=== PATIENT | female | born 1940 | race Caucasian/White ===

== ENCOUNTER 2021-11-29 14:01 | Outpatient (RCR) | payer MEDICARE, SELFPAY ==
[2021-09-09 15:40] LABS: INR 2.5; Partial Thromboplastin Time 35.6 SECONDS (22.3-36.8); Prothrombin Time 26.5 Seconds (11.1-14.7)
[2021-09-20 17:17] LABS: INR 1.8; Prothrombin Time 20.3 Seconds (11.1-14.7)
[2021-09-27 17:27] LABS: INR 2.3
[2021-10-04 16:08] LABS: INR 1.8; Prothrombin Time 20.7 Seconds (11.1-14.7)
[2021-10-12 17:37] LABS: INR 2.2; Prothrombin Time 23.8 Seconds (11.1-14.7)
[2021-10-19 17:38] LABS: INR 1.8; Prothrombin Time 20.4 Seconds (11.1-14.7)
[2021-11-02 16:46] LABS: INR 1.8; Prothrombin Time 20.3 Seconds (11.1-14.7)
[2021-11-09 15:30] LABS: INR 2.2; Prothrombin Time 24.2 Seconds (11.1-14.7)
[2021-11-16 17:10] LABS: INR 1.9; Prothrombin Time 21.2 Seconds (11.1-14.7)
[2021-11-29 14:51] LABS: INR 1.7; Prothrombin Time 19.6 Seconds (11.1-14.7)
== END 2021-12-08 23:59 | disposition home or self-care (01) ==
LOC: ANHLAB 14:01
DX: I48.91 Unspecified atrial fibrillation (principal)
CPT/HCPCS: 36415; 85610; 85730

== ENCOUNTER 2022-01-18 16:35 | Outpatient (CLI) | payer MEDICARE, SELFPAY ==
[2022-01-18 17:12] LABS: INR 2.2; Prothrombin Time 23.6 Seconds (11.1-14.7)
== END 2022-01-18 16:36 | disposition home or self-care (01) ==
PROVIDERS: PCP Family Medicine; Referring Provider Specialist; Visit Provider Family Medicine
DX: I48.91 Unspecified atrial fibrillation (principal); Z79.01 Long term (current) use of anticoagulants
CPT/HCPCS: 36415; 85610

== ENCOUNTER 2022-03-09 11:39 | Outpatient (RCR) | payer MEDICARE, SELFPAY ==
[2021-12-13 11:16] LABS: Basophils Percent Auto 0.2 % (0.2-1.2); Eosinophils Absolute Auto 0.2 K/mm3 (0-0.3); Eosinophils Percent Auto 3.2 % (0-4.4); Hematocrit 38.1 % (37.0-47.0); Immature Granulocyte Absolute 0.03 K/mm3 (0.00-0.031); Immature Granulocyte Percent A 0.5 % (0-0.5); Lymphocytes Absolute Auto 1.43 K/mm3 (0.9-3.2); Lymphocytes Percent Auto 24.3 % (18.3-44.2); Mean Corpuscular HGB Conc 31.5 g/dl (32-36); Mean Corpuscular Hemoglobin 30.1 pg (26-34); Mean Corpuscular Volume 95.5 fl (80-100); Mean Platelet Volume 9.3 fl (7.4-10.4); Monocytes Absolute Auto 0.6 K/mm3 (0.1-0.6); Monocytes Percent Auto 9.7 % (2.6-8.5); Neutrophils Absolute Auto 3.7 K/mm3 (1.3-6.7); Neutrophils Percent Auto 62.1 % (45.5-73.1); Platelet Count Result 203 k/mm3 (150-375); Red Blood Count 3.99 M/mm3 (4.2-5.4); Red Cell Distribution Width 17.2 % (11.5-14.5); White Blood Count 5.9 K/mm3 (4.5-10.0)
[2021-12-13 11:25] LABS: INR 1.6; Prothrombin Time 18.5 Seconds (11.1-14.7)
[2021-12-13 11:31] LABS: Alanine Aminotransferase 23 U/L (4-35); Albumin Level 4.1 g/dL (3.5-5.1); Alkaline Phosphatase 87 U/L (38-126); Anion Gap 6 mmol/L (8-16); Aspartate Amino Transferase 33 U/L (14-36); Bilirubin,Total 0.4 mg/dL (0.2-1.3); Blood Urea Nitrogen 17 mg/dL (7-17); Calcium 8.5 mg/dL (8.4-10.2); Carbon Dioxide 26 mmol/L (22-30); Chloride 107 mmol/L (98-107); Cholesterol 209 mg/dL (0-200); Estimated Glomerular Filt Rate 39; Glucose 86 mg/dL (65-110); HDL Direct 88 mg/dL; Potassium 4.5 mmol/L (3.4-5.0); Sodium 139 mmol/L (137-145); Triglycerides 43 mg/dL (<150)
[2021-12-13 11:42] LABS: LDL Cholesterol Direct 73 mg/dL
[2021-12-15 11:37] LABS: Phenytoin Dilantin Free 1.2 mg/L (1.0-2.0)
[2021-12-28 15:02] LABS: INR 1.5; Prothrombin Time 17.6 Seconds (11.1-14.7)
[2022-01-05 15:28] LABS: INR 2.4; Prothrombin Time 25.5 Seconds (11.1-14.7)
[2022-02-10 12:38] LABS: INR 2.2; Prothrombin Time 23.5 Seconds (11.1-14.7)
[2022-03-09 12:42] LABS: Prothrombin Time 21.9 Seconds (11.1-14.7)
== END 2022-03-13 23:59 | disposition home or self-care (01) ==
LOC: ANHLAB 11:39
PROVIDERS: PCP Family Medicine; Referring Provider Family Medicine
DX: I48.91 Unspecified atrial fibrillation (principal); E78.2 Mixed hyperlipidemia
CPT/HCPCS: 36415; 80053; 80061; 80186; 85025; 85610

== ENCOUNTER 2022-05-09 15:58 | Outpatient (CLI) | payer MEDICARE, SELFPAY ==
--- NOTE | ~2022-05-09 | XR_ITS ---
XR chest 2V DATE: 05/09/2022 16:27 INDICATION: Shortness of breath. History of COPD and hypertension. TECHNIQUE: PA and lateral views COMPARISON: None FINDINGS: Bilateral hyperinflation and relative flattening the diaphragm and increased retrosternal a irspace, consistent with COPD. No pulmonary infiltrate or consolidation, pleural effusion or pulmonar y vascular congestion or pneumothorax. Heart size is within normal range. Left-sided transvenous pacemaker device with leads overlying right atrium and right ventricle. No hilar or mediastinal enlargement. No pleural effusion or pulmonary vascular congestion or pneumoth orax. Aortic arch calcification and mild aortic unfolding. Diffuse osteopenia. Degenerative changes of the thoracic and lumbar spine. Glenohumeral osteoarthriti s. IMPRESSION: COPD Left-sided dual-lead pacemaker No active cardiopulmonary disease Reviewed, dictated and finalized at location B.
== END 2022-05-09 15:59 | disposition home or self-care (01) ==
PROVIDERS: PCP Family Medicine; Visit Provider Family Medicine
DX: R09.02 Hypoxemia (principal); Z95.0 Presence of cardiac pacemaker
CPT/HCPCS: 71046

== ENCOUNTER 2022-05-15 16:19 | Outpatient (CLI) | payer MEDICARE, SELFPAY ==
[2022-05-17 17:02] LABS: Phenytoin Dilantin Free 1.1 mg/L (1.0-2.0)
== END 2022-05-15 16:20 | disposition home or self-care (01) ==
LOC: ANHLAB 16:22
PROVIDERS: PCP Family Medicine; Visit Provider Physician Assistant
DX: Z51.81 Encounter for therapeutic drug level monitoring (principal); Z79.899 Other long term (current) drug therapy
CPT/HCPCS: 36415; 80186

== ENCOUNTER 2022-05-23 23:10 | Emergency (ER) | payer MEDICARE, SELFPAY ==
[2022-05-23 23:14] VITALS: BP 165/75; PULSE 60; RESP 16; TEMP 36.6; O2SAT 99
--- NOTE | 2022-05-23 23:58 | ED.DIZZY ---
HPI - Dizziness General Chief Complaint: Dizziness Stated Complaint: MY EQUILLIBRIUM IS OFF Time Seen by Provider: 05/23/22 23:44 History of Present Illness HPI Narrative: Patient is a 82-year-old female with a history of complete heart block status post pacemaker placement, here for evaluation of lightheadedness today. Patient states that she feels this way frequently when she does not eat, and patient states that she has not had a lot to eat today or drink. She decided to come to the ED because she felt off balance when she was ambulating, but denies syncope. Patient states she feels improved now. She denies any chest pain, shortness of breath, headaches, visual changes, syncope, unilateral weakness, slurred speech. She has seen her PCP for this issue in the past and has not had a clear etiology. Related Data Home Medications Medication Instructions Recorded Confirmed magnesium oxide 500 mg capsule 500 mg PO DAILY 12/06/21 05/10/22 mecobalamin (vitamin B12) 1,000 1,000 mcg PO DAILY 12/06/21 05/10/22 mcg chewable tablet (B12 Active) vitamin B complex (B 1 tablet PO DAILY 12/06/21 05/10/22 Complex-Vitamin B12 tablet) Allergies Allergy/AdvReac Type Severity Reaction Status Date / Time propoxyphene [From Darvon] AdvReac Migraine Verified 05/23/22 23:14 Review of Systems Review of Systems: Gen: Denies fevers or chills Eyes: Denies eye pain or visual change ENT: Denies congestion Respiratory: Denies shortness of breath or cough CV: Denies chest pain or palpitations GI: Denies abdominal pain nausea, emesis or diarrhea : denies burning, urgency, frequency or hematuria Musculoskeletal: Denies back pain or muscle pain Neuro: Reports lightheadedness. Denies numbness, tingling, weakness or focal weakness Skin: Denies rash Except as documented, all other systems reviewed and negative [facility] Past Medical History Medical History Atrial fibrillation by electrocardiogram Benign essential HTN CHB (complete heart block) COPD (chronic obstructive pulmonary disease) Heart block AV third degree Neuropathy Right-sided Reynoso's palsy Seizures Tinnitus of right ear Surgical History Surgical History S/P left knee arthroscopy Status cardiac pacemaker Family History Family History Father Asthma Hypertension Mother History of stroke Social History Social History Social History: Smoking status: Never smoker Second hand tobacco smoke exposure: No Alcohol intake: former Substance use: never Substance use type: does not use Gender identity (if verbalized by the patient): Female Sexual Orientation (if Verbalized by the Patient): Straight or Heterosexual Exam Narrative: APPEARANCE: Well appearing, no pain in distress, well-nourished. Head: Normocephalic and atraumatic. EYES: PERRLA/EOMI, conjunctivae clear NOSE: No nasal drainage EARS: External ear normal in appearance THROAT: Oropharynx is clear. Mucous membranes are moist. NECK: Supple. No adenopathy, no masses. RESPIRATORY: Airway patent, respirations nonlabored. Clear to auscultation bilaterally, no rales, rhonchi, wheezing. CARDIOVASCULAR: Regular rate and rhythm without murmurs, rubs, or gallops. ABDOMINAL: Normoactive bowel sounds. Soft, nontender, nondistended. No rebound tenderness or guarding. MUSCULOSKELETAL: Extremities are warm and well-perfused. Moves all extremities well. No edema. NEURO: [id number] normal. [id number] normal. Cranial nerves II through XII intact. Normal speech. SKIN: Skin is warm and dry. No rashes. PSYCHIATRIC: Normal affect/mood. Course Vital Signs Vital signs: Vital Signs Temperature 97.9 F 05/23/22 23:14 Pulse Rate 60 05/23/22 23:14 Respiratory Rate 16 05/23/22 23
--- NOTE | 2022-05-24 | ECG_ITS ---
Measurements Intervals [place] Rate: 60 P: 261 MO: 311 QRS: 236 QRSD: 147 T: 53 QT: 436 QTc: 436 Interpretive Statements ELECTRONIC ATRIAL PACEMAKER INDETERMINATE AXIS NONSPECIFIC INTRAVENTRICULAR CONDUCTION DELAY ABNORMAL ECG NO PREVIOUS ECG AVAILABLE FOR COMPARISON Electronically Signed On 05-24-2022 12:31:06 CDT by Nabil Richard M.D.
[2022-05-24 00:13] LABS: Basophils Percent Auto 0.5 % (0.2-1.2); Eosinophils Absolute Auto 0.3 K/mm3 (0-0.3); Eosinophils Percent Auto 3.9 % (0-4.4); Hematocrit 39.1 % (37.0-47.0); Hemoglobin 12.4 g/dL (12.0-15.0); Immature Granulocyte Absolute 0.03 K/mm3 (0.00-0.031); Immature Granulocyte Percent A 0.5 % (0-0.5); Lymphocytes Absolute Auto 1.13 K/mm3 (0.9-3.2); Lymphocytes Percent Auto 17.7 % (18.3-44.2); Mean Corpuscular HGB Conc 31.7 g/dl (32-36); Mean Corpuscular Hemoglobin 31.7 pg (26-34); Mean Platelet Volume 9.3 fl (7.4-10.4); Monocytes Absolute Auto 0.7 K/mm3 (0.1-0.6); Monocytes Percent Auto 10.7 % (2.6-8.5); Neutrophils Absolute Auto 4.3 K/mm3 (1.3-6.7); Neutrophils Percent Auto 66.7 % (45.5-73.1); Platelet Count Result 201 k/mm3 (150-375); Red Blood Count 3.91 M/mm3 (4.2-5.4); Red Cell Distribution Width 14.7 % (11.5-14.5); White Blood Count 6.4 K/mm3 (4.5-10.0)
[2022-05-24 00:32] LABS: Alanine Aminotransferase 21 U/L (6-35); Albumin Level 3.9 g/dL (3.5-5.1); Alkaline Phosphatase 93 U/L (38-126); Anion Gap 9 mmol/L (8-16); Aspartate Amino Transferase 28 U/L (14-36); Bilirubin,Total 0.3 mg/dL (0.2-1.3); Blood Urea Nitrogen 26 mg/dL (7-17); Calcium 8.5 mg/dL (8.4-10.2); Carbon Dioxide 23 mmol/L (22-30); Chloride 104 mmol/L (98-107); Estimated CRCL calculation 24 ml/min; Estimated Glomerular Filt Rate 39; Glucose 101 mg/dL (65-110); Magnesium 2.1 mg/dL (1.6-2.3); Phosphorus 5.2 mg/dL (2.5-4.5); Sodium 136 mmol/L (137-145)
[2022-05-24 02:23] VITALS: BP 165/83; PULSE 60; RESP 18; O2SAT 100
== END 2022-05-24 02:24 | disposition home or self-care (01) ==
PROVIDERS: Physician Assistant; Emergency Provider Emergency Medicine; PCP Family Medicine
DX: R42 Dizziness and giddiness (principal); I48.91 Unspecified atrial fibrillation; I10 Essential (primary) hypertension; J44.9 Chronic obstructive pulmonary disease, unspecified; G62.9 Polyneuropathy, unspecified; Z95.0 Presence of cardiac pacemaker; I45.9 Conduction disorder, unspecified
CPT/HCPCS: 36415; 80053; 83735; 84100; 85025; 93005; 99283

== ENCOUNTER 2022-06-15 16:55 | Outpatient (RCR) | payer MEDICARE, SELFPAY ==
[2022-04-06 14:25] LABS: INR 1.8; Prothrombin Time 20.3 Seconds (11.1-14.7)
[2022-04-20 17:09] LABS: INR 2.3; Prothrombin Time 24.1 Seconds (11.1-14.7)
[2022-05-09 17:27] LABS: INR 1.4; Prothrombin Time 16.6 Seconds (11.1-14.7)
[2022-05-15 16:50] LABS: INR 2.8; Prothrombin Time 28.2 Seconds (11.1-14.7)
[2022-06-15 17:23] LABS: INR 1.5; Prothrombin Time 17.2 Seconds (11.1-14.7)
== END 2022-07-05 23:59 | disposition home or self-care (01) ==
LOC: ANHLAB 16:55
PROVIDERS: PCP Family Medicine
DX: I48.91 Unspecified atrial fibrillation (principal)
CPT/HCPCS: 36415; 71046; 80186; 85610

== ENCOUNTER 2022-07-05 14:39 | Outpatient (RCR) | payer MEDICARE, SELFPAY ==
[2022-07-05 15:31] LABS: INR 1.7; Prothrombin Time 19.5 Seconds (11.1-14.7)
== END 2022-07-05 14:40 | disposition home or self-care (01) ==
LOC: ANHLAB 14:39
PROVIDERS: PCP Family Medicine; Visit Provider Physician Assistant
DX: Z51.81 Encounter for therapeutic drug level monitoring (principal); I48.91 Unspecified atrial fibrillation; Z79.01 Long term (current) use of anticoagulants
CPT/HCPCS: 36415; 85610

== ENCOUNTER 2022-07-28 12:28 | Outpatient (CLI) | payer MEDICARE, SELFPAY ==
[2022-07-28 13:05] LABS: Prothrombin Time 22.3 Seconds (11.1-14.7)
== END 2022-07-28 12:29 | disposition home or self-care (01) ==
LOC: ANHLAB 12:31
PROVIDERS: PCP Family Medicine; Visit Provider Physician Assistant
DX: Z79.01 Long term (current) use of anticoagulants (principal)
CPT/HCPCS: 36415; 85610

== ENCOUNTER 2022-07-28 12:35 | Outpatient (CLI) | payer MEDICARE, SELFPAY ==
[2022-07-28 13:08] LABS: Alanine Aminotransferase 29 U/L (6-35); Albumin Level 4.2 g/dL (3.5-5.1); Alkaline Phosphatase 73 U/L (38-126); Anion Gap 10 mmol/L (8-16); Aspartate Amino Transferase 32 U/L (14-36); Bilirubin,Total 0.3 mg/dL (0.2-1.3); Blood Urea Nitrogen 26 mg/dL (7-17); Calcium 8.6 mg/dL (8.4-10.2); Carbon Dioxide 25 mmol/L (22-30); Chloride 104 mmol/L (98-107); Estimated Glomerular Filt Rate 48; Glucose 92 mg/dL (65-110); Magnesium 2.1 mg/dL (1.6-2.3); Phosphorus 3.7 mg/dL (2.5-4.5); Potassium 4.1 mmol/L (3.4-5.0); Sodium 139 mmol/L (137-145)
== END 2022-07-28 12:36 | disposition home or self-care (01) ==
LOC: ANHLAB 12:36
PROVIDERS: PCP Family Medicine; Visit Provider Family Medicine
DX: I13.10 Hypertensive heart and chronic kidney disease without heart failure, with stage 1 through stage 4 chronic kidney disease, or unspecified chronic kidney disease (principal); N18.30 Chronic kidney disease, stage 3 unspecified
CPT/HCPCS: 36415; 80053; 83735; 84100; 85610

== ENCOUNTER 2022-10-27 15:14 | Outpatient (RCR) | payer MEDICARE, SELFPAY ==
[2022-08-14 15:39] LABS: INR 1.3; Prothrombin Time 15.4 Seconds (11.1-14.7)
[2022-10-06 15:45] LABS: INR 1.5; Prothrombin Time 17.2 Seconds (11.1-14.7)
[2022-10-27 15:48] LABS: Prothrombin Time 21.8 Seconds (11.1-14.7)
== END 2022-11-12 23:59 | disposition home or self-care (01) ==
LOC: ANHLAB 15:14
PROVIDERS: PCP Family Medicine; Visit Provider Family Medicine
DX: I48.91 Unspecified atrial fibrillation (principal)
CPT/HCPCS: 36415; 85610

== ENCOUNTER 2022-12-31 21:54 | Emergency (ER) | payer MEDICARE, SELFPAY ==
--- NOTE | ~2022-12-31 | XR_ITS ---
Clinical Indication: Shortness of breath PA and lateral views of the chest: Comparison: 05/09/2022 Findings: There is minimal bibasilar haziness, left worse than right. No pleural effusion or pneumoth orax. Cardiomediastinal silhouette is stable, with pacemaker device. Bones and soft tissues are unre markable. Impression: Probable minimal bibasilar pulmonary edema/atelectasis. Correlate for any possibility pneumonia. Pacemaker is. Reviewed, dictated and finalized at location . Impression: Probable minimal bibasilar pulmonary edema/atelectasis. Correlate for any possi bility pneumonia. Pacemaker is.
[2022-12-31 21:57] VITALS: BP 104/38; PULSE 75; RESP 20; TEMP 37.7; O2SAT 94
--- NOTE | 2022-12-31 22:02 | ECG_ITS ---
Measurements Intervals [place] Rate: 64 P: 73 [place]: 216 QRS: 220 QRSD: 149 T: 49 QT: 408 QTc: 422 Interpretive Statements ELECTRONIC ATRIAL PACEMAKER WITH INHIBITION RIGHT AXIS DEVIATION RIGHT BUNDLE BRANCH BLOCK ABNORMAL ECG COMPARED TO ECG 05/24/2022 00:44:34 NO SIGNIFICANT CHANGES Electronically Signed On 01-01-2023 6:48:24 CDT by Bebeto Sims D.O.
[2022-12-31 22:18] LABS: Basophils Percent Auto 0.2 % (0.2-1.2); Hematocrit 40.1 % (37.0-47.0); Hemoglobin 13.3 g/dL (12.0-15.0); Immature Granulocyte Percent A 0.6 % (0-0.5); Lymphocytes Absolute Auto 0.82 K/mm3 (0.9-3.2); Lymphocytes Percent Auto 4.9 % (18.3-44.2); Mean Corpuscular HGB Conc 33.2 g/dl (32-36); Mean Corpuscular Hemoglobin 32.9 pg (26-34); Mean Corpuscular Volume 99.3 fl (80-100); Mean Platelet Volume 9.4 fl (7.4-10.4); Monocytes Absolute Auto 1.2 K/mm3 (0.1-0.6); Monocytes Percent Auto 7.2 % (2.6-8.5); Neutrophils Absolute Auto 14.5 K/mm3 (1.3-6.7); Neutrophils Percent Auto 87.1 % (45.5-73.1); Platelet Count Result 184 k/mm3 (150-375); Red Blood Count 4.04 M/mm3 (4.2-5.4); Red Cell Distribution Width 14.1 % (11.5-14.5); White Blood Count 16.6 K/mm3 (4.5-10.0)
[2022-12-31 22:28] LABS: Alanine Aminotransferase 24 U/L (6-35); Alkaline Phosphatase 71 U/L (38-126); Anion Gap 7 mmol/L (8-16); Aspartate Amino Transferase 31 U/L (14-36); Bilirubin,Total 0.7 mg/dL (0.2-1.3); Blood Urea Nitrogen 28 mg/dL (7-17); Calcium 8.4 mg/dL (8.4-10.2); Carbon Dioxide 23 mmol/L (22-30); Chloride 101 mmol/L (98-107); Estimated CRCL calculation 26 ml/min; Estimated Glomerular Filt Rate 39; Glucose 131 mg/dL (65-110); Potassium 4.8 mmol/L (3.4-5.0); Sodium 131 mmol/L (137-145)
[2022-12-31 23:51] VITALS: PULSE 72; RESP 25; O2SAT 95
[2022-12-31] MEDS: BENZONATATE 100 MG CAPSULE 200 MG PO (23:57)
[2022-12-31] MEDS: methylPREDNISolone SOD SUCC 125 MG VIAL IV PUSH (23:57)
[2023-01-01 00:07] LABS: Lactic Acid Reflex 1.4 mmol/L (0.7-2.0)
[2023-01-01] MEDS: IPRATROPIUM BR 0.02% INH SOLN 0.5 MG/2.5 ML VIAL INHALATION (00:14)
[2023-01-01] MEDS: ALBUTEROL SULFATE NEB 2.5 MG/3 ML INH INHALATION (00:14)
[2023-01-01 00:15] VITALS: PULSE 66; RESP 23
[2023-01-01 00:27] VITALS: PULSE 68; RESP 20
[2023-01-01 00:57] VITALS: BP 110/48
[2023-01-01 00:57] LABS: Influenza A QL RT-PCR Negative (Negative); Influenza B QL RT-PCR Negative (Negative); RSV RNA, RT-PCR Negative (Negative); SARS-CoV-2 RNA PCR Negative
[2023-01-01 01:15] VITALS: TEMP 37.3
--- NOTE | 2023-01-01 01:48 | PC.NURSE ---
Walked pt with pulse Ox at this time. Pt walked with minimal assistance from staff, but did c/o lightheadedness. Pts O2 saturations between 91-92% on RA. EDP notified
--- NOTE | 2023-01-01 02:05 | ED.GENADULT ---
HPI - General Adult General Chief complaint: Shortness of Breath/Dyspnea Stated complaint: SOB Time Seen by Provider: 12/31/22 23:40 History of Present Illness HPI narrative: Patient 82-year-old female who presents to emergency department chief complaint of shortness of breath. Patient reports she has prior history of COPD and reports that she has been coughing has been nonproductive and reports that she has been having increasing shortness of breath and some tightness in her chest. Patient denies chest pain patient does report that she had a low-grade fever at home. Related Data Home Medications Medication Instructions Recorded Confirmed magnesium oxide 500 mg capsule 500 mg PO DAILY 12/06/21 08/29/22 mecobalamin (vitamin B12) 1,000 1,000 mcg PO DAILY 12/06/21 08/29/22 mcg chewable tablet (B12 Active) vitamin B complex (B 1 tablet PO DAILY 12/06/21 08/29/22 Complex-Vitamin B12 tablet) Allergies Allergy/AdvReac Type Severity Reaction Status Date / Time propoxyphene [From Darvon] AdvReac Migraine Verified 12/31/22 21:54 Review of Systems Review of Systems: A 10 system review of systems was completed on the patient and is negative except for what is stated in the HPI. Nursing and ancillary documentation was reviewed. [facility] Past Medical History Medical History Atrial fibrillation by electrocardiogram Benign essential HTN CHB (complete heart block) COPD (chronic obstructive pulmonary disease) Heart block AV third degree Neuropathy Right-sided Reynoso's palsy Seizures Tinnitus of right ear Surgical History Surgical History S/P left knee arthroscopy Status cardiac pacemaker Family History Family History Father Asthma Hypertension Mother History of stroke Social History Social History Social History: Smoking status: Never smoker Second hand tobacco smoke exposure: No Alcohol intake: former Substance use: never Substance use type: does not use Living arrangements: with family Occupation/Education: occupation Gender identity (if verbalized by the patient): Female Sexual Orientation (if Verbalized by the Patient): Straight or Heterosexual Exam Narrative: GENERAL: Well-appearing, well-nourished, and in no acute distress. HEAD: Normocephalic, atraumatic. EYES: PERRLA and EOMI. ENT: Nares clear, no rhinorrhea or epistaxis. Mucous membranes moist. NECK: Supple. CHEST: Clear to auscultation. No respiratory distress. HEART: Regular rate and rhythm. No murmur heard. Normal peripheral pulses. ABDOMEN: Soft, nontender, nondistended, normal active bowel sounds. EXTREMITIES: Normal range of motion. No edema. SKIN: Warm, dry, no rash. NEURO: No focal deficits. Alert and oriented x3. PSYCH: Normal mood and affect. Course Vital Signs Vital signs: Vital Signs Temperature 37.7 C H 12/31/22 21:57 Pulse Rate 75 12/31/22 21:57 Respiratory Rate 20 12/31/22 21:57 Blood Pressure 104/38 L 12/31/22 21:57 Pulse Oximetry 94 12/31/22 21:57 Oxygen Delivery Room Air 12/31/22 21:57 Temperature 37.3 C 01/01/23 01:15 Pulse Rate 68 01/01/23 00:27 Respiratory Rate 20 01/01/23 00:27 Blood Pressure 110/48 L 01/01/23 00:57 Pulse Oximetry 95 12/31/22 23:51 Oxygen Delivery Room Air 12/31/22 23:38 Medical Decision Making [facility] Narrative Medical decision making narrative: Differential diagnosis includes COPD exacerbation pneumonia, bronchitis, COVID, flu Laboratory studies were obtained and the patient showed a white count of 16.6 lactate was 1.4 electrolytes showed a creatinine of 1.3 troponin was negative influenza RSV and COVID were negative. Chest x-ray showed no focal infiltrate Vital Signs Vital Sig
[2023-01-01 02:14] LABS: Procalcitonin 2.8 ng/mL
[2023-01-01 02:24] VITALS: BP 105/63; PULSE 70; RESP 20; O2SAT 92
[2023-01-01] MEDS: ALBUTEROL SULFATE (*SP) INHALER 2 PUFF INHALATION (02:30)
== END 2023-01-01 02:56 | disposition home or self-care (01) ==
PROVIDERS: Emergency Provider Emergency Medicine; PCP Family Medicine
DX: J44.1 Chronic obstructive pulmonary disease with (acute) exacerbation (principal); I48.91 Unspecified atrial fibrillation; I10 Essential (primary) hypertension; Z20.822 Contact with and (suspected) exposure to COVID-19
CPT/HCPCS: 36415; 71046; 80053; 83605; 84145; 85025; 87637; 93005; 94640; 94664; 96365; 96375; 99284; A9270; J0131; J2930

== ENCOUNTER 2023-01-02 18:47 | Inpatient (IN) | payer MEDICARE, SELFPAY ==
--- NOTE | ~2023-01-02 | XR_ITS ---
EXAMINATION: XR barium swallow modified DATE: 01/03/2023 14:54 INDICATION: Choking with eating. TECHNIQUE: The patient was given barium-containing material of multiple consistencies to swallow by t jordan speech pathologist while I performed fluoroscopy. Fluoroscopy exposure time was 1.1 minutes. The n umber of fluoroscopy images saved to the PACS was 1. FINDINGS: There is a reduced labial seal/lip tension. There is reduced lingual movement. There is reduced tongu e base retraction and reduced pharyngeal squeeze. IMPRESSION: 1. No laryngeal penetration or aspiration. 2. Please refer to the speech therapy report for recommendations. Reviewed, dictated and finalized at location A.
--- NOTE | ~2023-01-02 | XR_ITS ---
EXAMINATION: XR chest 2V Exam Date/Time: 01/02/2023 19:30 CDT HISTORY: COUGH, SOB, FEVER. HX COPD, AFIB Comparison: 12/31/2022. RESULT: Lines, tubes, and devices: Left chest pacer with intact leads. Lungs and pleura: Patchy airspace disease in the right upper and bilateral lower lungs. Emphysematou s and senescent change Cardiomediastinal silhouette: Stable. Other: No acute osseous or upper abdominal finding. IMPRESSION: Bilateral pulmonary opacities, may represent multifocal pneumonia in the appropriate clinical context . Reviewed, dictated and finalized at location K. IMPRESSION: Bilateral pulmonary opacities, may represent multifocal pneumonia in the [facility] clinical context.
[2023-01-02 19:00] VITALS: BP 116/50; PULSE 79; RESP 14; TEMP 39.5; O2SAT 95
--- NOTE | 2023-01-02 19:06 | ECG_ITS ---
Measurements Intervals [place] Rate: 78 P: 108 [place]: 226 QRS: 192 QRSD: 146 T: 24 QT: 358 QTc: 409 Interpretive Statements SINUS RHYTHM WITH FIRST DEGREE AV BLOCK ATRIAL PREMATURE COMPLEXES RIGHT AXIS DEVIATION RIGHT BUNDLE BRANCH BLOCK ANTEROSEPTAL ST ELEVATION MYOCARDIAL INJURY- ACUTE BASELINE ARTIFACT- II, III, AVF ABNORMAL ECG COMPARED TO ECG 12/31/2022 22:06:11 SINUS RHYTHM NOW PRESENT FIRST DEGREE AV BLOCK NOW PRESENT ACUTE MN NOW PRESENT Electronically Signed On 01-02-2023 21:49:50 CDT by Bebeto Sims D.O.
[2023-01-02 20:00] LABS: Basophils Percent Auto 0.1 % (0.2-1.2); Eosinophils Absolute Auto 0.1 K/mm3 (0-0.3); Eosinophils Percent Auto 0.8 % (0-4.4); Hematocrit 40.4 % (37.0-47.0); Hemoglobin 13.2 g/dL (12.0-15.0); Immature Granulocyte Absolute 0.03 K/mm3 (0.00-0.031); Immature Granulocyte Percent A 0.3 % (0-0.5); Lymphocytes Absolute Auto 0.48 K/mm3 (0.9-3.2); Lymphocytes Percent Auto 4.3 % (18.3-44.2); Mean Corpuscular HGB Conc 32.7 g/dl (32-36); Mean Corpuscular Volume 98.1 fl (80-100); Mean Platelet Volume 9.7 fl (7.4-10.4); Monocytes Absolute Auto 0.2 K/mm3 (0.1-0.6); Neutrophils Absolute Auto 10.4 K/mm3 (1.3-6.7); Neutrophils Percent Auto 92.5 % (45.5-73.1); Platelet Count Result 179 k/mm3 (150-375); Red Blood Count 4.12 M/mm3 (4.2-5.4); Red Cell Distribution Width 14.4 % (11.5-14.5); White Blood Count 11.2 K/mm3 (4.5-10.0)
[2023-01-02 20:10] LABS: Alanine Aminotransferase 24 U/L (6-35); Albumin Level 3.9 g/dL (3.5-5.1); Alkaline Phosphatase 68 U/L (38-126); Anion Gap 6 mmol/L (8-16); Aspartate Amino Transferase 34 U/L (14-36); Bilirubin,Total 0.7 mg/dL (0.2-1.3); Blood Urea Nitrogen 30 mg/dL (7-17); Calcium 8.7 mg/dL (8.4-10.2); Carbon Dioxide 23 mmol/L (22-30); Chloride 100 mmol/L (98-107); Estimated CRCL calculation 26 ml/min; Estimated Glomerular Filt Rate 39; Glucose 128 mg/dL (65-110); Sodium 129 mmol/L (137-145)
[2023-01-02 20:21] LABS: Anisocytosis 1+ (NORMAL); Macrocytosis 1+ (NORMAL); Platelet Estimate Adequate (Adequate); Poikilocytosis 1+ (NORMAL); Schistocytes None Seen (NORMAL)
[2023-01-02 21:45] VITALS: BP 110/81; PULSE 83; RESP 20; O2SAT 96
[2023-01-02 21:56] VITALS: O2SAT 91
--- NOTE | 2023-01-02 21:58 | ED.GENADULT ---
HPI - General Adult General Chief complaint: Shortness of Breath/Dyspnea Stated complaint: SOB Time Seen by Provider: 01/02/23 21:43 History of Present Illness HPI narrative: Patient is a 82-year-old female who presents the emergency department with chief complaint of shortness of breath. Patient was seen in the emergency department the other night for bronchitis/early pneumonia and a COPD exacerbation patient received steroids antibiotics and breathing treatments and is doing much better and chose to go home as she had to take care of her animals. The patient states that today she started getting more short of breath and her fever has not been coming down patient denies chest pain does report that she had some shortness of breath does report that she has had some discomfort in her chest whenever she coughs Related Data Home Medications Medication Instructions Recorded Confirmed magnesium oxide 500 mg capsule 500 mg PO DAILY 12/06/21 08/29/22 mecobalamin (vitamin B12) 1,000 1,000 mcg PO DAILY 12/06/21 08/29/22 mcg chewable tablet (B12 Active) vitamin B complex (B 1 tablet PO DAILY 12/06/21 08/29/22 Complex-Vitamin B12 tablet) Allergies Allergy/AdvReac Type Severity Reaction Status Date / Time propoxyphene [From Darvon] AdvReac Migraine Verified 12/31/22 21:54 Review of Systems Review of Systems: A 10 system review of systems was completed on the patient and is negative except for what is stated in the HPI. Nursing and ancillary documentation was reviewed. [facility] Past Medical History Medical History Atrial fibrillation by electrocardiogram Benign essential HTN CHB (complete heart block) COPD (chronic obstructive pulmonary disease) Heart block AV third degree Neuropathy Right-sided Reynoso's palsy Seizures Tinnitus of right ear Surgical History Surgical History S/P left knee arthroscopy Status cardiac pacemaker Family History Family History Father Asthma Hypertension Mother History of stroke Social History Social History Social History: Smoking status: Never smoker Second hand tobacco smoke exposure: No Alcohol intake: former Substance use: never Substance use type: does not use Living arrangements: with family Occupation/Education: occupation Gender identity (if verbalized by the patient): Female Sexual Orientation (if Verbalized by the Patient): Straight or Heterosexual Exam Narrative: GENERAL: Ill-appearing, well-nourished, and in no acute distress. HEAD: Normocephalic, atraumatic. EYES: PERRLA and EOMI. ENT: Nares clear, no rhinorrhea or epistaxis. Mucous membranes moist. NECK: Supple. CHEST: Clear to auscultation. No respiratory distress. HEART: Regular rate and rhythm. No murmur heard. Normal peripheral pulses. ABDOMEN: Soft, nontender, nondistended, normal active bowel sounds. EXTREMITIES: Normal range of motion. No edema. SKIN: Warm, dry, no rash. NEURO: No focal deficits. Alert and oriented x3. PSYCH: Normal mood and affect. Course Vital Signs Vital signs: Vital Signs Temperature 39.5 C H 01/02/23 19:00 Pulse Rate 79 01/02/23 19:00 Respiratory Rate 14 01/02/23 19:00 Blood Pressure 116/50 L 01/02/23 19:00 Pulse Oximetry 95 01/02/23 19:00 Oxygen Delivery Room Air 01/02/23 19:00 Temperature 37.2 C 01/02/23 23:44 Pulse Rate 75 01/02/23 23:44 Respiratory Rate 17 01/02/23 23:44 Blood Pressure 112/60 01/02/23 23:44 Pulse Oximetry 96 01/02/23 23:44 Oxygen Delivery Nasal Cannula 01/02/23 22:00 Oxygen Flow Rate 2 01/02/23 22:00 Medical Decision Making [facility] Narrative Medical decision making narrative: Differential diagnosis includes pneumonia, COPD exacerbatio
[2023-01-02 22:00] VITALS: O2SAT 97
[2023-01-02] MEDS: ASPIRIN 81 MG CHEWABLE TABLET 324 MG PO (22:01)
[2023-01-02] MEDS: SODIUM CHLORIDE 0.9% IV 1,000 ML 999 ML IV CONT (22:02)
[2023-01-02 22:26] LABS: Lactic Acid Reflex 1.3 mmol/L (0.7-2.0)
[2023-01-02 22:39] LABS: NT Pro B Type Natriuretic Pept 4570 pg/mL (19.9-100); Troponin I < 0.012 ng/mL (0.000-0.034)
[2023-01-02 22:48] LABS: Influenza A QL RT-PCR Negative (Negative); Influenza B QL RT-PCR Negative (Negative); SARS-CoV-2 RNA PCR Negative
[2023-01-02 23:00] VITALS: BP 106/58; PULSE 78; RESP 21; O2SAT 97
[2023-01-02 23:22] LABS: Procalcitonin 7.6 ng/mL
[2023-01-02 23:44] VITALS: BP 112/60; PULSE 75; RESP 17; TEMP 37.2; O2SAT 96
--- NOTE | 2023-01-02 23:54 | PM.IMHP ---
H&P: HPI History of Present Illness Date/Time: 01/02/23 23:54 Chief Complaint: COUGH Narrative: This is an 82-year-old female with past medical history significant for COPD/emphysema, hypertension, atrial fibrillation rate control and anticoagulated, right side Reynoso's palsy. Patient has been to the emergency room before returning due to persistent cough has had bronchitis recently now returns today due to persistent dry cough, no sputum production, no fevers, no rigors, no chills no leg swelling, poor appetite. Preliminary workup was significant for chest x-ray with pulmonary opacities, a brain natriuretic peptide was 4000. Patient is been admitted for further evaluation management and treatment. Chest x-ray was reported as: IMPRESSION: Bilateral pulmonary opacities, may represent multifocal pneumonia in the appropriate clinical context. Review of Systems Review of Systems: Persistent dry cough. Constitutional: Constitutional: Denies chills, Denies fever(s), Denies malaise and Denies weakness Eyes: Eyes: Denies change in vision ENT: Denies dysphagia, Denies nasal congestion, Denies nasal discharge, Denies nasal obstruction and Denies odynophagia Cardiovascular: Cardiovascular: Denies chest pain, Denies leg edema, Denies radiating jaw, neck or arm pain and Denies palpitations Respiratory: Respiratory: Reports chest congestion, Reports cough, Denies excessive phlegm production, Reports dyspnea and Reports wheezing Gastrointestinal: Gastrointestinal: Denies abdominal pain, Denies dyspepsia, Denies heartburn, Denies diarrhea, Denies nausea and Denies vomiting Genitourinary: Genitourinary: Denies dysuria Musculoskeletal: Musculoskeletal: Denies myalgias Integumentary/Breasts: Skin/Breast: Denies rash Neurologic: Denies focal weakness and Denies Sensory deficit (Neuro) Psychiatric: Psychiatric: Reports no additional psychiatric complaints and Reports as per HPI Endocrine: Endocrine: Denies cold intolerance, Denies flushing, Denies heat intolerance, Denies polyphagia, Denies polydipsia and Denies palpitations Hematologic/Lymphatic: Hematologic/Lymphatic: Reports no additional hematologic/lymphatic complaints and Reports as per HPI Allergic/Immunologic: Allergic/Immunologic: Reports no additional allergic/immunologic complaints and Reports as per HPI PMFSH Past Medical History Medical History Atrial fibrillation by electrocardiogram Benign essential HTN CHB (complete heart block) COPD (chronic obstructive pulmonary disease) Heart block AV third degree Neuropathy Right-sided Reynoso's palsy Seizures Tinnitus of right ear Surgical History Surgical History S/P left knee arthroscopy Status cardiac pacemaker Family History Family History Father Asthma Hypertension Mother History of stroke Social History Social History Social History: Smoking status: Never smoker Second hand tobacco smoke exposure: No Alcohol intake: former Substance use: never Substance use type: does not use Lack of Transportation: No Lack of Food: Never True Current Housing: Decline to Answer Concerned About Future Housing: Decline to Answer Difficulty Paying Gas/Electric Bills: Decline to Answer Difficulty Paying for Meds: Decline to Answer Currently Unemployed: Decline to Answer Education: Decline to Answer Difficulty w/ Childcare or Family Care: Decline to Answer Living arrangements: with family Occupation/Education: occupation Gender identity (if verbalized by the patient): Female Sexual Orientation (if Verbalized by the Patient): Straight or Heterosexual Spiritual care concerns: No Meds Home Medications and Allergies Home Medications Med
[2023-01-03] VITALS (25 sets, daily range): BP systolic 106–124; BP diastolic 54–68; PULSE 69–95; RESP 17–30; TEMP 36.6–37.3; O2SAT 92–100; BMI 19.9
--- NOTE | 2023-01-03 | ECHO_ITS ---
Patient Info Name: Wanda Franco Age: 82 years : 1940 Gender: Female Ht: 65 in Wt: 119 lbs BSA: 1.57 m2 HR: 97 bpm BP: 109 / 54 mmHg Heart Rhythm: Sinus Rhythm Technical Quality: Fair Exam Date: 01/03/2023 8:05 AM Exam Location: [facility] Pulmonary Patient Status: Inpatient Admit Date: 01/03/2023 Staff Ordering Physician: Venice Garcia MD Refinery Operator Alkylation: Maria Catherine RDCS Attending Provider: Venice Garcia MD Referring Physician: Radha QUINONES; Exam Type: CA echo doppler color flow Study Info Indications - elevated bnp Complete two-dimensional, color flow and Doppler transthoracic echocardiogram is performed. Summary 1. Complete two-dimensional, color flow and Doppler transthoracic echocardiogram is performed. 2. Left ventricular chamber dimension is normal. 3. Left ventricular systolic function is normal, estimated at >70%. 4. The left ventricular diastolic function is grade III diastolic dysfunction. 5. E/e' 17 is elevated. 6. Right ventricular systolic function is reduced based on abnormal TAPSE 1.5 cm. 7. There is mild aortic valve sclerosis. 8. The mitral valve has mildly calcified annulus. 9. There is trace tricuspid valve regurgitation. 10. No pulmonary hypertension, estimated pulmonary arterial systolic pressure is 33 mmHg. Left Ventricle E/e' 17 is elevated. Left ventricular chamber dimension is normal. Left ventricular systolic function is normal, estimated at >70%. The left ventricular diastolic function is grade III diastolic dysfunction. Right Ventricle Right ventricular systolic function is reduced based on abnormal TAPSE 1.5 cm. Right ventricular chamber dimension is not well visualized. Left Atria Left atrial chamber dimension is normal. Right Atria Right atrial chamber dimension is normal. Aortic Valve The aortic valve is trileaflet. There is mild aortic valve sclerosis. There is no aortic valve stenosis. There is no aortic valve regurgitation. Pulmonic Valve There is no pulmonic regurgitation. Mitral Valve The mitral valve has mildly calcified annulus. There is no mitral valve stenosis. There is no mitral valve regurgitation. Tricuspid Valve There is trace tricuspid valve regurgitation. No pulmonary hypertension, estimated pulmonary arterial systolic pressure is 33 mmHg. Pericardium/Pleural There is no pericardial effusion. Inferior Vena Cava Normal inferior vena cava with >50% collapse upon inspiration consistent with normal right atrial pressure, 5 mmHg. Aorta The aortic root size at the sinus of Valsalva is normal. Left Ventricular Outflow Tract Name Value Normal LVOT 2D LVOT Diameter 2.0 cm LVOT Doppler LVOT Peak Gradient 5 mmHg LVOT Mean Gradient 3 mmHg LVOT VTI 18 cm LVOT VTI/AV VTI Ratio 0.6 LVOT Stroke Volume 54 ml LVOT CO 4.8 l/min LVOT CI 3.0 l/min/m2 Pulmonic Valve ------
--- NOTE | 2023-01-03 01:10 | ADMGEN ---
This patient, Wanda Franco, was admitted to Intensive Care Unit-4. Patient/family oriented to hospital policies and general routines including ID bracelet, bed and alarms, visiting hours, pain management, procedures, bathroom and other care routines, personal items, smoking policy, room service/diet, and visiting hours. Information on how to activate the Rapid Response Team has been discussed. Patient/Family are encouraged to report perceived risks to care and to ask questions if they do not understand what they are told or what they should do.
[2023-01-03] MEDS: SODIUM CHLORIDE 0.9% IV 1,000 ML 125 ML IV CONT (01:25)
[2023-01-03 01:27] LABS: Troponin I < 0.012 ng/mL (0.000-0.034)
[2023-01-03] MEDS: ALBUTEROL SULFATE NEB 2.5 MG/3 ML INH INHALATION ×4 (02:04→20:33)
[2023-01-03] MEDS: IPRATROPIUM BR 0.02% INH SOLN 0.5 MG/2.5 ML VIAL INHALATION ×4 (02:04→20:33)
[2023-01-03 03:39] LABS: Hematocrit 35.8 % (37.0-47.0); Hemoglobin 11.6 g/dL (12.0-15.0); Mean Corpuscular HGB Conc 32.4 g/dl (32-36); Mean Corpuscular Hemoglobin 31.8 pg (26-34); Mean Corpuscular Volume 98.1 fl (80-100); Mean Platelet Volume 10.2 fl (7.4-10.4); Platelet Count Result 142 k/mm3 (150-375); Red Blood Count 3.65 M/mm3 (4.2-5.4); Red Cell Distribution Width 14.2 % (11.5-14.5); White Blood Count 8.6 K/mm3 (4.5-10.0)
[2023-01-03 03:46] LABS: Prothrombin Time 30.5 Seconds (11.1-14.7)
[2023-01-03 03:47] LABS: Partial Thromboplastin Time 55.6 SECONDS (22.3-36.8)
[2023-01-03 04:18] LABS: Band Neutrophils Percent 21 % (0-6); Lymphocytes Absolute Manual 1.72 K/mm3 (1.1-4.5); Metamyelocytes Percent 3 %; Monocytes Absolute Manual 0.17 K/mm3 (0.1-0.90); Monocytes Percent Manual 2 % (3-9); Myelocytes Percent 1 %; Neutrophils Absolute Manual 6.36 K/mm3 (1.7-7.2); Neutrophils Percent Manual 53 % (46-73); Total Cells Counted 100
[2023-01-03 04:19] LABS: Anisocytosis 1+ (NORMAL); Macrocytosis 1+ (NORMAL); Microcytosis 1+ (NORMAL); Poikilocytosis 2+ (NORMAL)
[2023-01-03 04:20] LABS: Atypical Lymphocytes Present; Schistocytes None Seen (NORMAL); Smudge Cells PRESENT; Tear Drop Cells 1+ (NORMAL)
[2023-01-03 04:21] LABS: Acanthocytes 1+ (NORMAL); Burr Cells 1+ (NORMAL); Crenated RBC 1+ (NORMAL)
[2023-01-03] MEDS: BENZONATATE 100 MG CAPSULE 200 MG PO ×2 (04:37→19:42)
[2023-01-03] MEDS: FLUTICASONE/SALMETEROL 115-21 MCG INHALER 1 PUFF 2 PUFF INHALATION (07:55)
[2023-01-03] MEDS: AMIODARONE HCL 200 MG TABLET PO (08:33)
[2023-01-03] MEDS: DOXYCYCLINE HYCLATE 100 MG TABLET PO (08:34)
[2023-01-03] MEDS: amLODIPine BESYLATE 5 MG TABLET PO (08:34)
[2023-01-03] MEDS: CYANOCOBALAMIN 1,000 MCG TABLET 1000 MCG PO (08:35)
[2023-01-03] MEDS: AZELASTINE HCL NASAL 0.1% 137 MCG/SPR 30 ML BTL 1 SPRAY NASAL ×2 (08:35→19:43)
[2023-01-03] MEDS: MAGNESIUM OXIDE 400 MG TABLET PO (08:36)
[2023-01-03] MEDS: FLUTICASONE PROPIONATE 0.05% NA SPR 16 GM BTL (*BKC) 1 SPRAY NASAL ×2 (08:36→16:23)
[2023-01-03] MEDS: FUROSEMIDE INJ 40 MG/4 ML VIAL IV PUSH ×2 (08:36→16:23)
[2023-01-03] MEDS: POTASSIUM CHLORIDE 20 MEQ TABLET.ER PO (08:36)
[2023-01-03] MEDS: VITAMIN B COMPLEX CAPSULE 1 CAP PO (08:37)
[2023-01-03] MEDS: predniSONE 20 MG TABLET 40 MG PO (08:37)
--- NOTE | 2023-01-03 15:36 | PM.IMPN ---
Progress Note: A&P Assessment and Plan (1) Pneumonia: Code(s): J18.9 - Pneumonia, unspecified organism Status: Acute Assessment and Plan: Admit to IMU Patient started on Rocephin and Zithromax Cultures in progress Continue to monitor Supportive care 01/03/2023 interval history: 82-year-old female states she has never smoked in her life however he had been exposed to secondhand smoking most of her life, presents with complaint cough shortness of breath suspect patient is outpatient of COPD and chest x-ray is suspicious for pneumonia patient is being treated ceftriaxone and azithromycin as well as prednisone and bronchodilator, will continue to monitor and further recommendation to follow. (2) COPD (chronic obstructive pulmonary disease): Code(s): J44.9 - Chronic obstructive pulmonary disease, unspecified Status: Acute Assessment and Plan: Breathing treatments Continue to monitor On p.o. steroids (3) Hypertensive heart and chronic kidney disease stage 3: Code(s): I13.10 - Hypertensive heart and chronic kidney disease without heart failure, with stage 1 through stage 4 chronic kidney disease, or unspecified chronic kidney disease; N18.30 - Chronic kidney disease, stage 3 unspecified Status: Acute Assessment and Plan: BUN and creatinine appears to be patient's baseline Continue to monitor (4) Atrial fibrillation with controlled ventricular rate: Code(s): I48.91 - Unspecified atrial fibrillation Status: Acute Assessment and Plan: Rate controlled and anticoagulated (5) Heart block AV third degree: Code(s): I44.2 - Atrioventricular block, complete Status: Acute Assessment and Plan: Dual-chamber pacemaker in place Subjective Date/time seen: 01/03/23 15:36 COUGH Narrative: This is an 82-year-old female with past medical history significant for COPD/emphysema, hypertension, atrial fibrillation rate control and anticoagulated, right side Reynoso's palsy.? Patient has been to the emergency room before returning due to persistent cough has had bronchitis recently now returns today due to persistent dry cough, no sputum production, no fevers, no rigors, no chills no leg swelling, poor appetite.? Preliminary workup was significant for chest x-ray with pulmonary opacities, a brain natriuretic peptide was 4000. Patient is been admitted for further evaluation management and treatment. 01/03/2023 interval history: 82-year-old female states she has never smoked in her life however he had been exposed to secondhand smoking most of her life, presents with complaint cough shortness of breath suspect patient is outpatient of COPD and chest x-ray is suspicious for pneumonia patient is being treated ceftriaxone and azithromycin as well as prednisone and bronchodilator, will continue to monitor and further recommendation to follow. Review of Systems Review of Systems: Persistent dry cough. Constitutional: Constitutional: Denies chills, Denies fever(s), Denies malaise and Denies weakness Eyes: Eyes: Denies change in vision ENT: Denies dysphagia, Denies nasal congestion, Denies nasal discharge, Denies nasal obstruction and Denies odynophagia Cardiovascular: Cardiovascular: Denies chest pain, Denies leg edema, Denies radiating jaw, neck or arm pain and Denies palpitations Respiratory: Respiratory: Reports chest congestion, Reports cough, Denies excessive phlegm production, Reports dyspnea and Reports wheezing Gastrointestinal: Gastrointestinal: Denies abdominal pain, Denies dyspepsia, Denies heartburn, Denies diarrhea, Denies nausea and Denies vomiting Genitourinary: Genitourinary: Denies dysuria Musculoskeletal: Musculoskeletal: Denies myalgias Integumentary/Breasts: Skin/Breast: Denies rash Neurologic: Denies focal weakness and Denies Sensory deficit (Neuro) Psychiatric: Psychiatric: Reports no additional psychiatric complaints and Reports as per HPI End
--- NOTE | 2023-01-03 15:41 | PCCCNOTE ---
On 01/03/23, the student, [Ines Meeks ], provided care and completed [facility] documentation on this patient. I have reviewed the student's documentation and agree with the findings.
--- NOTE | 2023-01-03 15:44 | PCSTNOTE ---
Patient seen for modified barium swallow study. Writhing movements of head and neck noted while swallowing. Per nursing, this may be due to tardive dyskinesia. Patient demonstrated delayed onset of swallowing and slow oral transit. However, no penetration or aspiration were seen. Patient stated that she does not eat solid foods because it is hard for her to chew them, but she trialed one small piece of canned pineapple mixed with pudding and it was well tolerated. Patient complains of frequent reflux/regurgitation. However, cervical/esophageal function appeared to be within normal limits during this study. This does not rule out the possibility of an esophageal disorder or condition. Based on this study, recommendations for this patient include: pureed diet with thin liquids. Swallowing precaution recommendations placed in chart. No further speech therapy is recommended at this time. Thank you for the referral of this patient. [ End ]
[2023-01-03] MEDS: WARFARIN (*PBKC) 2.5 MG TABLET PO (16:22)
[2023-01-03] MEDS: cefTRIAXone 2 GM/NS 100 ML 2 GM/100 ML BAG IVPB (16:23)
[2023-01-03] MEDS: ACETAMINOPHEN 325 MG TABLET 650 MG PO (19:42)
[2023-01-03] MEDS: PHENYTOIN SODIUM 100 MG EXTENDED RELEASE CAP 200 MG PO (19:42)
[2023-01-04] VITALS (21 sets, daily range): BP systolic 103–115; BP diastolic 57–69; PULSE 68–87; RESP 17–23; TEMP 37.1–37.4; O2SAT 91–99
[2023-01-04] MEDS: ALBUTEROL SULFATE NEB 2.5 MG/3 ML INH INHALATION ×4 (02:38→20:34)
[2023-01-04] MEDS: IPRATROPIUM BR 0.02% INH SOLN 0.5 MG/2.5 ML VIAL INHALATION ×4 (02:39→20:34)
[2023-01-04] MEDS: BENZONATATE 100 MG CAPSULE 200 MG PO ×2 (06:48→18:03)
[2023-01-04] MEDS: FLUTICASONE/SALMETEROL 115-21 MCG INHALER 1 PUFF 2 PUFF INHALATION ×2 (07:34→20:34)
[2023-01-04] MEDS: predniSONE 20 MG TABLET 40 MG PO (10:30)
[2023-01-04] MEDS: AZELASTINE HCL NASAL 0.1% 137 MCG/SPR 30 ML BTL 1 SPRAY NASAL ×2 (10:30→20:59)
[2023-01-04] MEDS: amLODIPine BESYLATE 5 MG TABLET PO (10:30)
[2023-01-04] MEDS: POTASSIUM CHLORIDE 20 MEQ TABLET.ER PO (10:31)
[2023-01-04] MEDS: CYANOCOBALAMIN 1,000 MCG TABLET 1000 MCG PO (10:31)
[2023-01-04] MEDS: MAGNESIUM OXIDE 400 MG TABLET PO (10:31)
[2023-01-04] MEDS: AMIODARONE HCL 200 MG TABLET PO (10:31)
[2023-01-04] MEDS: VITAMIN B COMPLEX CAPSULE 1 CAP PO (10:32)
[2023-01-04] MEDS: FLUTICASONE PROPIONATE 0.05% NA SPR 16 GM BTL (*BKC) 1 SPRAY NASAL ×2 (10:32→16:33)
[2023-01-04] MEDS: FUROSEMIDE INJ 40 MG/4 ML VIAL IV PUSH ×2 (10:32→16:36)
--- NOTE | 2023-01-04 14:01 | PCOTNOTE ---
Attempted to see pt. for occupational therapy evaluation. Pt. currently getting breathing treatment. Agreeable to participate at later time. Nursing aware.
--- NOTE | 2023-01-04 15:11 | PM.IMPN ---
Progress Note: A&P Assessment and Plan (1) Pneumonia: Code(s): J18.9 - Pneumonia, unspecified organism Status: Acute Assessment and Plan: Admit to IMU Patient started on Rocephin and Zithromax Cultures in progress Continue to monitor Supportive care 01/04/2023 interval history: 82-year-old female states she has never smoked in her life however he had been exposed to secondhand smoking most of her life, presents with complaint cough shortness of breath suspect patient is found have COPD and chest x-ray is suspicious for pneumonia patient is being treated ceftriaxone and azithromycin as well as prednisone and bronchodilator, today patient states feels little better the persistent cough will add guaifenesin and Tessalon, will continue to monitor and further recommendation to follow. (2) COPD (chronic obstructive pulmonary disease): Code(s): J44.9 - Chronic obstructive pulmonary disease, unspecified Status: Acute Assessment and Plan: Breathing treatments Continue to monitor On p.o. steroids (3) Hypertensive heart and chronic kidney disease stage 3: Code(s): I13.10 - Hypertensive heart and chronic kidney disease without heart failure, with stage 1 through stage 4 chronic kidney disease, or unspecified chronic kidney disease; N18.30 - Chronic kidney disease, stage 3 unspecified Status: Acute Assessment and Plan: BUN and creatinine appears to be patient's baseline Continue to monitor (4) Atrial fibrillation with controlled ventricular rate: Code(s): I48.91 - Unspecified atrial fibrillation Status: Acute Assessment and Plan: Rate controlled and anticoagulated (5) Heart block AV third degree: Code(s): I44.2 - Atrioventricular block, complete Status: Acute Assessment and Plan: Dual-chamber pacemaker in place Subjective Date/time seen: 01/04/23 15:11 Admit to IMU Patient started on Rocephin and Zithromax Cultures in progress Continue to monitor Supportive care 01/04/2023 interval history: 82-year-old female states she has never smoked in her life however he had been exposed to secondhand smoking most of her life, presents with complaint cough shortness of breath suspect patient is found have COPD and chest x-ray is suspicious for pneumonia patient is being treated ceftriaxone and azithromycin as well as prednisone and bronchodilator, today patient states feels little better the persistent cough will add guaifenesin and Tessalon, will continue to monitor and further recommendation to follow. Exam Narrative: Patient is comfortable, NAD HEENT: eyes are clear and none icteric LUNGS: bilateral fair entry with rales and rhonchi HEART: RR S1S2 ABD: not distended Lower extremities: no edema SKIN: nonjaundiced Neuro: grossly intact. Objective Data Vital Signs Vital Signs: Vital Signs - 24 hr 01/03/23 15:13 01/03/23 16:00 01/03/23 16:00 Temperature Pulse Rate 79 81 81 Respiratory Rate 22 H 26 H Blood Pressure Pulse Oximetry 93 Oxygen Delivery Room Air Oxygen Flow Rate 01/03/23 16:00 01/03/23 18:00 01/03/23 20:00 Temperature 99.2 F Pulse Rate 81 81 77 Respiratory Rate 26 H 19 Blood Pressure 120/57 L Pulse Oximetry 93 98 Oxygen Delivery Nasal Cannula Oxygen Flow Rate 2 01/03/23 20:00 01/03/23 20:00 01/03/23 22:00 Temperature 99.1 F Pulse Rate 76 76 72 Respiratory Rate 19 Blood Pressure 106/62 Pulse Oximetry 97 Oxygen Delivery Oxygen Flow Rate 01/03/23 23:43 01/04/23 00:00 01/04/23 00:00 Temperature 98.7 F Pulse Rate 71 70 76 Respiratory Rate 18 19 Blood Pressure 109/62 Pulse Oximetry 99 99 Oxygen Delivery Nasal Cannula Oxygen Flow Rate 2 01/04/23 02:00 01/03/23 20:33 01/03/23 20:32 Temperature Pulse Rate 68 73 Respiratory Rate 19 Blood Pressure Pulse Oximetry 99 Oxygen Delivery Nasal Cannula Oxygen Flow Rate 2 01/04/23 02:41
[2023-01-04] MEDS: cefTRIAXone 2 GM/NS 100 ML 2 GM/100 ML BAG IVPB (16:32)
[2023-01-04] MEDS: WARFARIN (*PBKC) 2.5 MG TABLET PO (16:34)
[2023-01-04] MEDS: ACETAMINOPHEN 325 MG TABLET 650 MG PO ×2 (16:36→20:57)
[2023-01-04 16:49] LABS: Hematocrit 36.9 % (37.0-47.0); Hemoglobin 12.2 g/dL (12.0-15.0); Mean Corpuscular HGB Conc 33.1 g/dl (32-36); Mean Corpuscular Hemoglobin 31.1 pg (26-34); Mean Corpuscular Volume 94.1 fl (80-100); Platelet Count Result 183 k/mm3 (150-375); Red Blood Count 3.92 M/mm3 (4.2-5.4); Red Cell Distribution Width 14.5 % (11.5-14.5); White Blood Count 8.7 K/mm3 (4.5-10.0)
[2023-01-04 16:59] LABS: INR 2.5; Prothrombin Time 26.1 Seconds (11.1-14.7)
[2023-01-04 17:01] LABS: Alanine Aminotransferase 36 U/L (6-35); Albumin Level 3.5 g/dL (3.5-5.1); Alkaline Phosphatase 86 U/L (38-126); Anion Gap 8 mmol/L (8-16); Aspartate Amino Transferase 68 U/L (14-36); Bilirubin,Total 0.6 mg/dL (0.2-1.3); Blood Urea Nitrogen 29 mg/dL (7-17); Calcium 8.7 mg/dL (8.4-10.2); Carbon Dioxide 24 mmol/L (22-30); Chloride 101 mmol/L (98-107); Estimated CRCL calculation 32 ml/min; Estimated Glomerular Filt Rate 48; Glucose 163 mg/dL (65-110); Magnesium 2.1 mg/dL (1.6-2.3); Sodium 133 mmol/L (137-145)
[2023-01-04] MEDS: guaiFENesin 12 HR 600 MG TABCR PO (20:58)
[2023-01-04] MEDS: PHENYTOIN SODIUM 100 MG EXTENDED RELEASE CAP 200 MG PO (20:59)
[2023-01-05] VITALS (20 sets, daily range): BP systolic 105–125; BP diastolic 61–73; PULSE 69–94; RESP 16–25; TEMP 36.6–37.1; O2SAT 87–97
[2023-01-05] MEDS: BENZONATATE 100 MG CAPSULE 200 MG PO ×2 (01:34→21:20)
[2023-01-05] MEDS: ACETAMINOPHEN 325 MG TABLET 650 MG PO ×2 (01:35→21:19)
[2023-01-05] MEDS: ALBUTEROL SULFATE NEB 2.5 MG/3 ML INH INHALATION ×4 (01:50→21:27)
[2023-01-05] MEDS: IPRATROPIUM BR 0.02% INH SOLN 0.5 MG/2.5 ML VIAL INHALATION ×4 (01:50→21:27)
[2023-01-05 08:15] LABS: INR 2.7; Prothrombin Time 28.1 Seconds (11.1-14.7)
[2023-01-05 08:16] LABS: Anion Gap 6 mmol/L (8-16); Blood Urea Nitrogen 30 mg/dL (7-17); Calcium 8.3 mg/dL (8.4-10.2); Carbon Dioxide 26 mmol/L (22-30); Chloride 101 mmol/L (98-107); Estimated CRCL calculation 32 ml/min; Estimated Glomerular Filt Rate 48; Glucose 93 mg/dL (65-110); Magnesium 2.2 mg/dL (1.6-2.3); Potassium 3.5 mmol/L (3.4-5.0); Sodium 133 mmol/L (137-145)
[2023-01-05] MEDS: amLODIPine BESYLATE 5 MG TABLET PO (08:24)
[2023-01-05] MEDS: AMIODARONE HCL 200 MG TABLET PO (08:24)
[2023-01-05] MEDS: POTASSIUM CHLORIDE 20 MEQ TABLET.ER PO (08:25)
[2023-01-05] MEDS: guaiFENesin 12 HR 600 MG TABCR PO ×2 (08:25→21:38)
[2023-01-05] MEDS: FUROSEMIDE INJ 40 MG/4 ML VIAL IV PUSH ×2 (08:25→16:14)
[2023-01-05] MEDS: CYANOCOBALAMIN 1,000 MCG TABLET 1000 MCG PO (08:25)
[2023-01-05] MEDS: VITAMIN B COMPLEX CAPSULE 1 CAP PO (08:25)
[2023-01-05] MEDS: FLUTICASONE PROPIONATE 0.05% NA SPR 16 GM BTL (*BKC) 1 SPRAY NASAL ×2 (08:25→16:14)
[2023-01-05] MEDS: MAGNESIUM OXIDE 400 MG TABLET PO (08:25)
[2023-01-05] MEDS: AZELASTINE HCL NASAL 0.1% 137 MCG/SPR 30 ML BTL 1 SPRAY NASAL ×2 (08:25→20:29)
[2023-01-05] MEDS: predniSONE 20 MG TABLET 40 MG PO (08:26)
[2023-01-05 08:38] LABS: Hematocrit 34.3 % (37.0-47.0); Hemoglobin 11.2 g/dL (12.0-15.0); Mean Corpuscular HGB Conc 32.7 g/dl (32-36); Mean Corpuscular Hemoglobin 32.5 pg (26-34); Mean Corpuscular Volume 99.4 fl (80-100); Mean Platelet Volume 10.1 fl (7.4-10.4); Platelet Count Result 180 k/mm3 (150-375); Red Blood Count 3.45 M/mm3 (4.2-5.4); Red Cell Distribution Width 14.5 % (11.5-14.5); White Blood Count 8.2 K/mm3 (4.5-10.0)
[2023-01-05] MEDS: FLUTICASONE/SALMETEROL 115-21 MCG INHALER 1 PUFF 2 PUFF INHALATION ×2 (08:43→21:27)
--- NOTE | 2023-01-05 12:07 | HOMEO2EVAL ---
Evaluation was performed at [facility] Home Oxygen Evaluation RC: Home Oxygen (O2) Evaluation Start: 01/05/23 10:42 Freq: ONCE Status: Active Protocol: RPE Activity Type Activity Date Activity User E-sign Co-sign Detail Recorded Client Recorded Date Recorded By Document 01/05/23 10:50 DJO [email or web address] 01/05/23 12:07 DJO Document 01/05/23 10:55 [email or web address] [email or web address] 01/05/23 12:07 DJO Document 01/05/23 11:00 [email or web address] [email or web address] 01/05/23 12:07 DJO Document 01/05/23 11:05 [email or web address] [email or web address] 01/05/23 12:07 DJO Document 01/05/23 11:20 [email or web address] [email or web address] 01/05/23 12:07 DJO 01/05/23 01/05/23 01/05/23 10:50 10:55 11:00 Home O2 Evaluation [Oxygen] -Test Phase Resting Exercise Exercise -Oxygen Delivery Room Air Room Air Nasal Cannula -Oxygen Flow Rate (L/min) 1 [Pulse Oximetry] -Pulse Oximetry (90-100 %) 92 87 L 88 L [Pulse Rate] -Pulse Rate (60-100 beats/min) 82 88 90 [Evaluation] -Activity Tolerance [Charges] -Treatment Charges O2 Evaluation - Inpatient 01/05/23 01/05/23 11:05 11:20 Home O2 Evaluation [Oxygen] -Test Phase Exercise Resting -Oxygen Delivery Nasal Cannula Room Air -Oxygen Flow Rate (L/min) 2 [Pulse Oximetry] -Pulse Oximetry (90-100 %) 91 92 [Pulse Rate] -Pulse Rate (60-100 beats/min) 94 84 [Evaluation] -Activity Tolerance Poor [Charges] -Treatment Charges
[2023-01-05] MEDS: DORNASE ALFA INH SOLN 1 MG/ML 2.5 ML AMP 2.5 MG INHALATION ×2 (14:09→21:27)
--- NOTE | 2023-01-05 15:13 | PCRCNOTE ---
HOME O2 EVAL COMPLETE, 2L WITH ACTIVITY. SET UP WITH [employer]. PHONE NUMBER [phone]. TANK HAS BEEN DELIVERED TO PT'S ROOM FOR DISCHARGE.
[2023-01-05] MEDS: cefTRIAXone 2 GM/NS 100 ML 2 GM/100 ML BAG IVPB (16:14)
[2023-01-05] MEDS: WARFARIN (*PBKC) 2.5 MG TABLET PO (16:14)
--- NOTE | 2023-01-05 16:54 | PM.IMPN ---
Progress Note: A&P Assessment and Plan (1) Pneumonia: Code(s): J18.9 - Pneumonia, unspecified organism Status: Acute Assessment and Plan: Admit to IMU Patient started on Rocephin and Zithromax Cultures in progress Continue to monitor Supportive care 01/05/2023 interval history: 82-year-old female states she has never smoked in her life however he had been exposed to secondhand smoking most of her life, presents with complaint cough shortness of breath suspect patient is found have COPD and chest x-ray is suspicious for pneumonia patient is being treated ceftriaxone and azithromycin as well as prednisone and bronchodilator, on 01/04 patient stated feels little better but complained of persistent cough added guaifenesin and Tessalon, today patient continued to complain of cough and secretion will add Dornase will continue to monitor and further recommendation to follow. (2) COPD (chronic obstructive pulmonary disease): Code(s): J44.9 - Chronic obstructive pulmonary disease, unspecified Status: Acute Assessment and Plan: Breathing treatments Continue to monitor On p.o. steroids (3) Hypertensive heart and chronic kidney disease stage 3: Code(s): I13.10 - Hypertensive heart and chronic kidney disease without heart failure, with stage 1 through stage 4 chronic kidney disease, or unspecified chronic kidney disease; N18.30 - Chronic kidney disease, stage 3 unspecified Status: Acute Assessment and Plan: BUN and creatinine appears to be patient's baseline Continue to monitor (4) Atrial fibrillation with controlled ventricular rate: Code(s): I48.91 - Unspecified atrial fibrillation Status: Acute Assessment and Plan: Rate controlled and anticoagulated (5) Heart block AV third degree: Code(s): I44.2 - Atrioventricular block, complete Status: Acute Assessment and Plan: Dual-chamber pacemaker in place Subjective Date/time seen: 01/05/23 16:54 Admit to IMU Patient started on Rocephin and Zithromax Cultures in progress Continue to monitor Supportive care 01/05/2023 interval history: 82-year-old female states she has never smoked in her life however he had been exposed to secondhand smoking most of her life, presents with complaint cough shortness of breath suspect patient is found have COPD and chest x-ray is suspicious for pneumonia patient is being treated ceftriaxone and azithromycin as well as prednisone and bronchodilator, on 01/04 patient stated feels little better but complained of persistent cough added guaifenesin and Tessalon, today patient continued to complain of cough and secretion will add Dornase will continue to monitor and further recommendation to follow. Review of Systems Constitutional: Constitutional: Denies chills, Denies fever(s), Denies malaise and Denies weakness Exam Narrative: Patient is comfortable, NAD HEENT: eyes are clear and none icteric LUNGS: bilateral fair entry with rales and rhonchi HEART: RR S1S2 ABD: not distended Lower extremities: no edema SKIN: nonjaundiced Neuro: grossly intact. Objective Data Vital Signs Vital Signs: Vital Signs - 24 hr 01/04/23 20:34 01/04/23 20:49 01/04/23 20:00 Temperature Pulse Rate 73 71 78 Respiratory Rate 20 18 20 Blood Pressure Pulse Oximetry 97 Oxygen Delivery Nasal Cannula Oxygen Flow Rate 2 01/04/23 20:00 01/05/23 00:00 01/05/23 00:00 Temperature 98.7 F Pulse Rate 72 71 69 Respiratory Rate 24 H Blood Pressure 119/64 Pulse Oximetry 96 Oxygen Delivery Oxygen Flow Rate 01/05/23 01:51 01/05/23 02:05 01/05/23 04:00 Temperature Pulse Rate 74 72 71 Respiratory Rate 18 18 22 H Blood Pressure 123/69 Pulse Oximetry 96 Oxygen Delivery Oxygen Flow Rate 01/05/23 04:00 01/05/23 08:14 01/05/23 08:14 Temperature Pulse Rate 72 74 74 Respiratory Rate 25 H 25 H Blood Pressure Pulse Oximetry 95 Oxyg
--- NOTE | 2023-01-05 18:00 | PC.NURSE ---
This patient, Wanda Franco, was transferred to [facility] on 01/05/23 at 1800. Personal belongings sent with patient. Report given to Julee. Appropriate documentation sent with patient.
--- NOTE | 2023-01-05 18:33 | PC.NURSE ---
This patient, Wanda Franco, was received from [[email or web address] ] on 01/05/23 at 1830. Patient/family oriented to unit policies and routines
[2023-01-05] MEDS: PHENYTOIN SODIUM 100 MG EXTENDED RELEASE CAP 200 MG PO (21:38)
[2023-01-06] VITALS (12 sets, daily range): BP systolic 120–122; BP diastolic 68–78; PULSE 69–84; RESP 18–22; TEMP 36.2–36.9; O2SAT 94–100
[2023-01-06] MEDS: ALBUTEROL SULFATE NEB 2.5 MG/3 ML INH INHALATION ×4 (02:17→21:00)
[2023-01-06] MEDS: IPRATROPIUM BR 0.02% INH SOLN 0.5 MG/2.5 ML VIAL INHALATION ×4 (02:17→21:00)
[2023-01-06 07:07] LABS: Hematocrit 34.6 % (37.0-47.0); Hemoglobin 11.4 g/dL (12.0-15.0); Mean Corpuscular HGB Conc 32.9 g/dl (32-36); Mean Corpuscular Hemoglobin 32.3 pg (26-34); Mean Platelet Volume 9.6 fl (7.4-10.4); Platelet Count Result 206 k/mm3 (150-375); Red Blood Count 3.53 M/mm3 (4.2-5.4); Red Cell Distribution Width 14.3 % (11.5-14.5); White Blood Count 8.7 K/mm3 (4.5-10.0)
[2023-01-06 07:16] LABS: Anion Gap 7 mmol/L (8-16); Blood Urea Nitrogen 26 mg/dL (7-17); Calcium 8.5 mg/dL (8.4-10.2); Carbon Dioxide 28 mmol/L (22-30); Chloride 99 mmol/L (98-107); Estimated CRCL calculation 35 ml/min; Estimated Glomerular Filt Rate 53; Glucose 97 mg/dL (65-110); Magnesium 2.1 mg/dL (1.6-2.3); Potassium 3.2 mmol/L (3.4-5.0); Sodium 134 mmol/L (137-145)
[2023-01-06 07:20] LABS: INR 3.3; Prothrombin Time 32.8 Seconds (11.1-14.7)
[2023-01-06] MEDS: FLUTICASONE PROPIONATE 0.05% NA SPR 16 GM BTL (*BKC) 1 SPRAY NASAL ×2 (07:45→17:29)
[2023-01-06] MEDS: AZELASTINE HCL NASAL 0.1% 137 MCG/SPR 30 ML BTL 1 SPRAY NASAL ×2 (07:45→20:29)
[2023-01-06] MEDS: DORNASE ALFA INH SOLN 1 MG/ML 2.5 ML AMP 2.5 MG INHALATION ×2 (07:46→21:01)
[2023-01-06] MEDS: FUROSEMIDE INJ 40 MG/4 ML VIAL IV PUSH ×2 (07:46→17:32)
[2023-01-06] MEDS: FLUTICASONE/SALMETEROL 115-21 MCG INHALER 1 PUFF 2 PUFF INHALATION ×2 (07:46→21:01)
[2023-01-06] MEDS: predniSONE 20 MG TABLET 40 MG PO (07:46)
[2023-01-06] MEDS: MAGNESIUM OXIDE 400 MG TABLET PO (07:47)
[2023-01-06] MEDS: amLODIPine BESYLATE 5 MG TABLET PO (07:47)
[2023-01-06] MEDS: POTASSIUM CHLORIDE 20 MEQ TABLET.ER PO (07:47)
[2023-01-06] MEDS: AMIODARONE HCL 200 MG TABLET PO (07:47)
[2023-01-06] MEDS: VITAMIN B COMPLEX CAPSULE 1 CAP PO (07:47)
[2023-01-06] MEDS: guaiFENesin 12 HR 600 MG TABCR PO ×2 (07:48→20:29)
[2023-01-06] MEDS: CYANOCOBALAMIN 1,000 MCG TABLET 1000 MCG PO (07:48)
[2023-01-06] MEDS: POTASSIUM CHLORIDE 20 MEQ TABLET 40 MEQ PO (08:04)
--- NOTE | 2023-01-06 11:41 | PM.IMPN ---
Progress Note: A&P Assessment and Plan (1) Pneumonia: Code(s): J18.9 - Pneumonia, unspecified organism Status: Acute Assessment and Plan: Admit to IMU Patient started on Rocephin and Zithromax Cultures in progress Continue to monitor Supportive care 01/06/2023 interval history: 82-year-old female states she has never smoked in her life however he had been exposed to secondhand smoking most of her life, presents with complaint cough shortness of breath suspect patient is found have COPD and chest x-ray is suspicious for pneumonia patient is being treated ceftriaxone and azithromycin as well as prednisone and bronchodilator, on 01/04 patient stated feels little better but complained of persistent cough added guaifenesin and Tessalon, on 06/07 patient continued to complain of cough and secretion added Dornase to help with secretion, today patient stats feeling lot better and cough has improved, patient will benefit going to rehab, patient is working with PT/OT, will continue to monitor and further recommendation to follow. (2) COPD (chronic obstructive pulmonary disease): Code(s): J44.9 - Chronic obstructive pulmonary disease, unspecified Status: Acute Assessment and Plan: Breathing treatments Continue to monitor On p.o. steroids (3) Hypertensive heart and chronic kidney disease stage 3: Code(s): I13.10 - Hypertensive heart and chronic kidney disease without heart failure, with stage 1 through stage 4 chronic kidney disease, or unspecified chronic kidney disease; N18.30 - Chronic kidney disease, stage 3 unspecified Status: Acute Assessment and Plan: BUN and creatinine appears to be patient's baseline Continue to monitor (4) Atrial fibrillation with controlled ventricular rate: Code(s): I48.91 - Unspecified atrial fibrillation Status: Acute Assessment and Plan: Rate controlled and anticoagulated (5) Heart block AV third degree: Code(s): I44.2 - Atrioventricular block, complete Status: Acute Assessment and Plan: Dual-chamber pacemaker in place Subjective Date/time seen: 01/06/23 11:41 Admit to IMU Patient started on Rocephin and Zithromax Cultures in progress Continue to monitor Supportive care 01/06/2023 interval history: 82-year-old female states she has never smoked in her life however he had been exposed to secondhand smoking most of her life, presents with complaint cough shortness of breath suspect patient is found have COPD and chest x-ray is suspicious for pneumonia patient is being treated ceftriaxone and azithromycin as well as prednisone and bronchodilator, on 01/04 patient stated feels little better but complained of persistent cough added guaifenesin and Tessalon, on 06/07 patient continued to complain of cough and secretion added Dornase to help with secretion, today patient stats feeling lot better and cough has improved, patient will benefit going to rehab, patient is working with PT/OT, will continue to monitor and further recommendation to follow. Review of Systems Constitutional: Constitutional: Denies chills, Denies fever(s), Denies malaise and Denies weakness Exam Narrative: Patient is comfortable, NAD HEENT: eyes are clear and none icteric LUNGS: bilateral fair entry with rales and rhonchi HEART: RR S1S2 ABD: not distended Lower extremities: no edema SKIN: nonjaundiced Neuro: grossly intact. Objective Data Vital Signs Vital Signs: Vital Signs - 24 hr 01/05/23 13:32 01/05/23 14:35 01/05/23 16:00 Temperature 98 F Pulse Rate 75 79 Respiratory Rate 18 20 Blood Pressure 119/64 Pulse Oximetry 94 92 Oxygen Delivery Nasal Cannula Nasal Cannula Oxygen Flow Rate 3 2 01/05/23 14:09 01/05/23 14:22 01/05/23 21:27 Temperature Pulse Rate 79 80 84 Respiratory Rate 20 20 20 Blood Pressure Pulse Oximetry Oxygen Delivery Oxygen Flow Rate 01/05/23 21:38 01/05/23 23:13 01/05/23
--- NOTE | 2023-01-06 14:35 | ECG_ITS ---
Measurements Intervals [place] Rate: 73 P: -85 [place]: 165 QRS: -83 QRSD: 151 T: 33 QT: 392 QTc: 434 Interpretive Statements SINUS OR ECTOPIC ATRIAL RHYTHM POSSIBLE LEFT ATRIAL ENLARGEMENT RIGHT BUNDLE BRANCH BLOCK ABNORMAL ECG COMPARED TO ECG 01/02/2023 21:26:30 ST ELEVATION RESOLVED Electronically Signed On 01-06-2023 21:52:13 CDT by Bebeto Sims D.O.
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
[2023-01-06 15:42] LABS: Troponin I < 0.012 ng/mL (0.000-0.034)
--- NOTE | 2023-01-06 15:50 | PC.NURSE ---
Pt was complaining of indigestion and chest pain. I contacted Dr. Avelar who ordered a stat 12 lead EKG. 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 I contacted Dr. Avelar who ordered troponin labs stat. The troponin labs came back within normal limits. I contacted Dr. Avelar who gave no new orders but to keep an eye on her.
[2023-01-06] MEDS: cefTRIAXone 2 GM/NS 100 ML 2 GM/100 ML BAG IVPB (17:28)
[2023-01-06] MEDS: WARFARIN (*PBKC) 2.5 MG TABLET PO (18:02)
[2023-01-06] MEDS: PHENYTOIN SODIUM 100 MG EXTENDED RELEASE CAP 200 MG PO (20:28)
[2023-01-07] VITALS (9 sets, daily range): BP systolic 106–130; BP diastolic 60–80; PULSE 56–90; RESP 16–22; TEMP 36.3–36.7; O2SAT 92–96
[2023-01-07] MEDS: ALBUTEROL SULFATE NEB 2.5 MG/3 ML INH INHALATION ×3 (03:07→14:18)
[2023-01-07] MEDS: IPRATROPIUM BR 0.02% INH SOLN 0.5 MG/2.5 ML VIAL INHALATION ×3 (03:07→14:18)
[2023-01-07 06:06] LABS: Hematocrit 36.3 % (37.0-47.0); Hemoglobin 11.9 g/dL (12.0-15.0); Mean Corpuscular HGB Conc 32.8 g/dl (32-36); Mean Corpuscular Hemoglobin 32.2 pg (26-34); Mean Corpuscular Volume 98.4 fl (80-100); Mean Platelet Volume 9.4 fl (7.4-10.4); Platelet Count Result 244 k/mm3 (150-375); Red Blood Count 3.69 M/mm3 (4.2-5.4); Red Cell Distribution Width 14.2 % (11.5-14.5); White Blood Count 10.2 K/mm3 (4.5-10.0)
[2023-01-07 06:16] LABS: INR 3.3; Prothrombin Time 32.9 Seconds (11.1-14.7)
[2023-01-07 06:21] LABS: Anion Gap 6 mmol/L (8-16); Blood Urea Nitrogen 24 mg/dL (7-17); Calcium 8.6 mg/dL (8.4-10.2); Carbon Dioxide 30 mmol/L (22-30); Chloride 96 mmol/L (98-107); Estimated CRCL calculation 38 ml/min; Estimated Glomerular Filt Rate 60; Glucose 94 mg/dL (65-110); Magnesium 2.1 mg/dL (1.6-2.3); Potassium 3.9 mmol/L (3.4-5.0); Sodium 132 mmol/L (137-145)
[2023-01-07] MEDS: FLUTICASONE PROPIONATE 0.05% NA SPR 16 GM BTL (*BKC) 1 SPRAY NASAL ×2 (08:30→17:18)
[2023-01-07] MEDS: AZELASTINE HCL NASAL 0.1% 137 MCG/SPR 30 ML BTL 1 SPRAY NASAL ×2 (08:31→20:03)
[2023-01-07] MEDS: predniSONE 20 MG TABLET 40 MG PO (08:32)
[2023-01-07] MEDS: POTASSIUM CHLORIDE 20 MEQ TABLET.ER PO (08:32)
[2023-01-07] MEDS: FUROSEMIDE INJ 40 MG/4 ML VIAL IV PUSH ×2 (08:32→17:18)
[2023-01-07] MEDS: CYANOCOBALAMIN 1,000 MCG TABLET 1000 MCG PO (08:32)
[2023-01-07] MEDS: guaiFENesin 12 HR 600 MG TABCR PO ×2 (08:32→20:07)
[2023-01-07] MEDS: VITAMIN B COMPLEX CAPSULE 1 CAP PO (08:32)
[2023-01-07] MEDS: amLODIPine BESYLATE 5 MG TABLET PO (08:32)
[2023-01-07] MEDS: MAGNESIUM OXIDE 400 MG TABLET PO (08:32)
[2023-01-07] MEDS: AMIODARONE HCL 200 MG TABLET PO (08:32)
[2023-01-07] MEDS: FLUTICASONE/SALMETEROL 115-21 MCG INHALER 1 PUFF 2 PUFF INHALATION (09:02)
[2023-01-07] MEDS: DORNASE ALFA INH SOLN 1 MG/ML 2.5 ML AMP 2.5 MG INHALATION (09:02)
--- NOTE | 2023-01-07 13:14 | PM.IMPN ---
Progress Note: A&P Assessment and Plan (1) Pneumonia: Code(s): J18.9 - Pneumonia, unspecified organism Status: Acute Assessment and Plan: Admit to IMU Patient started on Rocephin and Zithromax Cultures in progress Continue to monitor Supportive care 01/07/2023 interval history: 82-year-old female states she has never smoked in her life however he had been exposed to secondhand smoking most of her life, presents with complaint cough shortness of breath suspect patient is found have COPD and chest x-ray is suspicious for pneumonia patient is being treated ceftriaxone and azithromycin as well as prednisone and bronchodilator, on 01/04 patient stated feels little better but complained of persistent cough added guaifenesin and Tessalon, on 06/07 patient continued to complain of cough and secretion added Dornase to help with secretion, today patient stats feeling lot better and cough has improved, will taper prednisone to 30mg qd, patient will benefit going to rehab, patient is working with PT/OT, will continue to monitor and further recommendation to follow. (2) COPD (chronic obstructive pulmonary disease): Code(s): J44.9 - Chronic obstructive pulmonary disease, unspecified Status: Acute Assessment and Plan: Breathing treatments Continue to monitor On p.o. steroids (3) Hypertensive heart and chronic kidney disease stage 3: Code(s): I13.10 - Hypertensive heart and chronic kidney disease without heart failure, with stage 1 through stage 4 chronic kidney disease, or unspecified chronic kidney disease; N18.30 - Chronic kidney disease, stage 3 unspecified Status: Acute Assessment and Plan: BUN and creatinine appears to be patient's baseline Continue to monitor (4) Atrial fibrillation with controlled ventricular rate: Code(s): I48.91 - Unspecified atrial fibrillation Status: Acute Assessment and Plan: Rate controlled and anticoagulated (5) Heart block AV third degree: Code(s): I44.2 - Atrioventricular block, complete Status: Acute Assessment and Plan: Dual-chamber pacemaker in place Subjective Date/time seen: 01/07/23 13:14 Admit to IMU Patient started on Rocephin and Zithromax Cultures in progress Continue to monitor Supportive care 01/07/2023 interval history: 82-year-old female states she has never smoked in her life however he had been exposed to secondhand smoking most of her life, presents with complaint cough shortness of breath suspect patient is found have COPD and chest x-ray is suspicious for pneumonia patient is being treated ceftriaxone and azithromycin as well as prednisone and bronchodilator, on 01/04 patient stated feels little better but complained of persistent cough added guaifenesin and Tessalon, on 06/07 patient continued to complain of cough and secretion added Dornase to help with secretion, today patient stats feeling lot better and cough has improved, will taper prednisone to 30mg qd, patient will benefit going to rehab, patient is working with PT/OT, will continue to monitor and further recommendation to follow. Review of Systems Constitutional: Constitutional: Denies chills, Denies fever(s), Denies malaise and Denies weakness Exam Narrative: Patient is comfortable, NAD HEENT: eyes are clear and none icteric LUNGS: bilateral fair entry with rales and rhonchi HEART: RR S1S2 ABD: not distended Lower extremities: no edema SKIN: nonjaundiced Neuro: grossly intact. Objective Data Vital Signs Vital Signs: Vital Signs - 24 hr 01/06/23 14:13 01/06/23 14:28 01/06/23 14:00 Temperature 97.1 F L Pulse Rate 82 84 80 Respiratory Rate 18 18 18 Blood Pressure 121/70 Pulse Oximetry 96 Oxygen Delivery Oxygen Flow Rate 01/06/23 21:07 01/06/23 21:42 01/06/23 21:51 Temperature 98.5 F Pulse Rate 72 69 69 Respiratory Rate 22 H 18 22 H Blood Pressure 122/78 Pulse Oximetry 99 Oxygen Delivery
[2023-01-07] MEDS: cefTRIAXone 2 GM/NS 100 ML 2 GM/100 ML BAG IVPB (17:18)
[2023-01-07] MEDS: WARFARIN (*PBKC) 2.5 MG TABLET PO (17:18)
[2023-01-07] MEDS: PHENYTOIN SODIUM 100 MG EXTENDED RELEASE CAP 200 MG PO (20:11)
[2023-01-08] VITALS (10 sets, daily range): BP systolic 117–129; BP diastolic 62–68; PULSE 51–74; RESP 16–20; TEMP 36.6–36.8; O2SAT 86–97
[2023-01-08] MEDS: ALBUTEROL SULFATE NEB 2.5 MG/3 ML INH INHALATION ×3 (03:47→13:40)
[2023-01-08] MEDS: IPRATROPIUM BR 0.02% INH SOLN 0.5 MG/2.5 ML VIAL INHALATION ×3 (03:47→13:40)
[2023-01-08 06:17] LABS: Hematocrit 34.5 % (37.0-47.0); Hemoglobin 11.4 g/dL (12.0-15.0); Mean Corpuscular Hemoglobin 31.8 pg (26-34); Mean Corpuscular Volume 96.1 fl (80-100); Mean Platelet Volume 9.3 fl (7.4-10.4); Platelet Count Result 275 k/mm3 (150-375); Red Blood Count 3.59 M/mm3 (4.2-5.4); White Blood Count 10.9 K/mm3 (4.5-10.0)
[2023-01-08 06:28] LABS: INR 3.5; Prothrombin Time 33.7 Seconds (11.1-14.7)
[2023-01-08 06:36] LABS: Anion Gap 3 mmol/L (8-16); Blood Urea Nitrogen 23 mg/dL (7-17); Calcium 8.7 mg/dL (8.4-10.2); Carbon Dioxide 32 mmol/L (22-30); Chloride 99 mmol/L (98-107); Estimated CRCL calculation 43 ml/min; Estimated Glomerular Filt Rate > 60; Glucose 84 mg/dL (65-110); Magnesium 2.2 mg/dL (1.6-2.3); Potassium 3.8 mmol/L (3.4-5.0); Sodium 134 mmol/L (137-145)
[2023-01-08] MEDS: FLUTICASONE/SALMETEROL 115-21 MCG INHALER 1 PUFF 2 PUFF INHALATION (08:30)
[2023-01-08] MEDS: DORNASE ALFA INH SOLN 1 MG/ML 2.5 ML AMP 2.5 MG INHALATION (08:30)
[2023-01-08] MEDS: AMIODARONE HCL 200 MG TABLET PO (08:58)
[2023-01-08] MEDS: AZELASTINE HCL NASAL 0.1% 137 MCG/SPR 30 ML BTL 1 SPRAY NASAL (08:58)
[2023-01-08] MEDS: amLODIPine BESYLATE 5 MG TABLET PO (08:58)
[2023-01-08] MEDS: POTASSIUM CHLORIDE 20 MEQ TABLET.ER PO (08:59)
[2023-01-08] MEDS: guaiFENesin 12 HR 600 MG TABCR PO (08:59)
[2023-01-08] MEDS: FLUTICASONE PROPIONATE 0.05% NA SPR 16 GM BTL (*BKC) 1 SPRAY NASAL (08:59)
[2023-01-08] MEDS: VITAMIN B COMPLEX CAPSULE 1 CAP PO (08:59)
[2023-01-08] MEDS: MAGNESIUM OXIDE 400 MG TABLET PO (08:59)
[2023-01-08] MEDS: CYANOCOBALAMIN 1,000 MCG TABLET 1000 MCG PO (08:59)
[2023-01-08] MEDS: predniSONE 20 MG TABLET 40 MG PO (08:59)
--- NOTE | 2023-01-08 09:19 | PCOTNOTE ---
Attempted to see patient this am, however patient refused. Pt reported already completed ADLs last night, and declined activity out of bed stating, I need to sit right here and take my medicine. Pt reported difficulty with swallowing and asked specifically for exercises to strengthen throat. Educated patient on importance of positioning, encouraging patient to sit up for all meals as she stated she's been in bed for them thus far. Relayed message to speech therapy for follow up.
--- NOTE | 2023-01-08 10:31 | PC.NURSE ---
Dr Avelar notified of not giving iv lasix due to iv leaking and pt is supposed to be discharged
--- NOTE | 2023-01-08 11:22 | PM.DS ---
DS: Admitting Diagnosis Discharge Date 01/08/2023 Admitting Diagnosis Cough DS: Discharge Diagnosis Discharge Diagnosis (1) Pneumonia: Code(s): J18.9 - Pneumonia, unspecified organism Status: Acute Assessment and Plan: Admit to IMU Patient started on Rocephin and Zithromax Cultures in progress Continue to monitor Supportive care 01/07/2023 interval history: 82-year-old female states she has never smoked in her life however he had been exposed to secondhand smoking most of her life, presents with complaint cough shortness of breath suspect patient is found have COPD and chest x-ray is suspicious for pneumonia patient is being treated ceftriaxone and azithromycin as well as prednisone and bronchodilator, on 01/04 patient stated feels little better but complained of persistent cough added guaifenesin and Tessalon, on 06/07 patient continued to complain of cough and secretion added Dornase to help with secretion, today patient stats feeling lot better and cough has improved, will taper prednisone to 30mg qd, patient will benefit going to rehab, patient is working with PT/OT, will continue to monitor and further recommendation to follow. (2) COPD (chronic obstructive pulmonary disease): Code(s): J44.9 - Chronic obstructive pulmonary disease, unspecified Status: Acute Assessment and Plan: Breathing treatments Continue to monitor On p.o. steroids (3) Hypertensive heart and chronic kidney disease stage 3: Code(s): I13.10 - Hypertensive heart and chronic kidney disease without heart failure, with stage 1 through stage 4 chronic kidney disease, or unspecified chronic kidney disease; N18.30 - Chronic kidney disease, stage 3 unspecified Status: Acute Assessment and Plan: BUN and creatinine appears to be patient's baseline Continue to monitor (4) Atrial fibrillation with controlled ventricular rate: Code(s): I48.91 - Unspecified atrial fibrillation Status: Acute Assessment and Plan: Rate controlled and anticoagulated (5) Heart block AV third degree: Code(s): I44.2 - Atrioventricular block, complete Status: Acute Assessment and Plan: Dual-chamber pacemaker in place DS: Summary Hospital Course Reason for hospitalization: COUGH Narrative: This is an 82-year-old female with past medical history significant for COPD/emphysema, hypertension, atrial fibrillation rate control and anticoagulated, right side Reynoso's palsy.? Patient has been to the emergency room before returning due to persistent cough has had bronchitis recently now returns today due to persistent dry cough, no sputum production, no fevers, no rigors, no chills no leg swelling, poor appetite.? Preliminary workup was significant for chest x-ray with pulmonary opacities, a brain natriuretic peptide was 4000. Patient is been admitted for further evaluation management and treatment. Hospital Course: 82-year-old female states she has never smoked in her life however he had been exposed to secondhand smoking most of her life, presents with complaint cough shortness of breath suspect patient is found have? COPD and chest x-ray is suspicious for pneumonia patient is being treated ceftriaxone and azithromycin as well as prednisone and bronchodilator, on 01/04? patient stated feels little better but complained of persistent cough added guaifenesin and Tessalon, on 06/07 patient continued to complain of cough and secretion added Dornase to help with secretion, today patient stats feeling lot better and cough has improved, will taper prednisone to 30mg qd,? patient will benefit going to rehab, patient is working with PT/OT,? will continue to monitor and further recommendation to follow. Patient is clinically stable will discharge the patient today Time Spent with Patient Time attestation: Total time spent providing and/or coordinating discharge services: Exam Narrative: Patient is comfortable, NAD HEENT
--- NOTE | 2023-01-08 11:49 | HOMEO2EVAL ---
Evaluation was performed at [facility] Home Oxygen Evaluation RC: Home Oxygen (O2) Evaluation Start: 01/05/23 10:42 Freq: ONCE Status: Active Protocol: RPE Activity Type Activity Date Activity User E-sign Co-sign Detail Recorded Client Recorded Date Recorded By Document 01/08/23 11:22 KRM [id number] 01/08/23 11:49 KRM 01/08/23 11:22 Home O2 Evaluation [Oxygen] -Test Phase Exercise -Oxygen Delivery Room Air [Pulse Oximetry] -Pulse Oximetry (90-100 %) 86 L [Pulse Rate] -Pulse Rate (60-100 beats/min) 74 [Evaluation] -Activity Tolerance Good [Exercise] -Ambulation Distance (feet) 50 -Ambulation Distance (meters) 15.23 [Comments] -Home Oxygen Evaluation Comments Room air SPO2 check while pt. was walking the stairs. Pt . dropped to 86 %. Placed back on 2lpm and she returned to 92%. [Charges] -Treatment Charges O2 Evaluation - Inpatient
--- NOTE | 2023-01-08 11:49 | PCRCNOTE ---
ROOM AIR SPO2 CHECK TO [facility] FOR HOME O2. PT. WAS WALKING THE STAIRS WITH THERAPY. SPO2 DROPPED TO 86%. PLACED BACK ON 2LPM AND SPO2 RETURNED TO 92%. FAXED UPDATED TESTING TO [facility].
== END 2023-01-08 17:36 | disposition home health service (06) | DRG 194 ==
LOC: ANHED 01-03 00:10 → ANHICU 01-03 06:16 → ANH3MEDSUR 01-06 10:32 → ANHICU 01-10 10:47
PROVIDERS: Admitting Provider Internal Medicine; Emergency Provider Emergency Medicine; PCP Family Medicine; Visit Provider Family Medicine
DX: J18.9 Pneumonia, unspecified organism (principal); I44.2 Atrioventricular block, complete; I13.10 Hypertensive heart and chronic kidney disease without heart failure, with stage 1 through stage 4 chronic kidney disease, or unspecified chronic kidney disease; J43.9 Emphysema, unspecified; I48.91 Unspecified atrial fibrillation; N18.30 Chronic kidney disease, stage 3 unspecified; G51.0 Bell's palsy; Z95.0 Presence of cardiac pacemaker; Z20.822 Contact with and (suspected) exposure to COVID-19; Z79.51 Long term (current) use of inhaled steroids; Z79.899 Other long term (current) drug therapy
CPT/HCPCS: 36415; 71046; 80048; 80053; 83605; 83735; 83880; 84145; 84484; 85025; 85027; 85610; 85730; 87040; 87636; 87637; 92611; 93005; 93306; 94618; 94640; 94664; 96361; 96365; 96367; 96375; 97110; 97116; 97161; 97165; 97530; 97535; 99284; 99285; A9270; J0131; J0456; J0696; J1940; J2930; J7030; J7512

== ENCOUNTER 2023-01-15 13:40 | Outpatient (NON) | payer MEDICARE, SELFPAY ==
[2023-01-15 14:29] LABS: INR 3.6
== END 2023-01-15 13:41 | disposition home or self-care (01) ==
PROVIDERS: PCP Family Medicine; Visit Provider Family Medicine
DX: I48.91 Unspecified atrial fibrillation (principal); J44.0 Chronic obstructive pulmonary disease with (acute) lower respiratory infection; J18.9 Pneumonia, unspecified organism; I13.10 Hypertensive heart and chronic kidney disease without heart failure, with stage 1 through stage 4 chronic kidney disease, or unspecified chronic kidney disease
CPT/HCPCS: 85610

== ENCOUNTER 2023-02-02 16:10 | Outpatient (RCR) | payer MEDICARE, SELFPAY ==
[2022-11-28 15:19] LABS: INR 1.7; Prothrombin Time 19.6 Seconds (11.1-14.7)
[2022-12-28 16:35] LABS: INR 1.6; Prothrombin Time 18.5 Seconds (11.1-14.7)
[2023-02-02 17:19] LABS: INR 1.7; Prothrombin Time 19.5 Seconds (11.1-14.7)
== END 2023-02-26 23:59 | disposition home or self-care (01) ==
LOC: ANHLAB 16:10
PROVIDERS: PCP Family Medicine; Visit Provider Family Medicine
DX: I48.91 Unspecified atrial fibrillation (principal)
CPT/HCPCS: 36415; 85610

== ENCOUNTER 2023-06-04 14:49 | Outpatient (RCR) | payer MEDICARE, SELFPAY ==
[2023-03-20 12:21] LABS: INR 1.7; Prothrombin Time 21.3 Seconds (11.1-14.7)
[2023-05-23 15:24] LABS: INR 1.5; Prothrombin Time 18.8 Seconds (11.1-14.7)
[2023-06-04 15:43] LABS: INR 1.9; Prothrombin Time 23.4 Seconds (11.1-14.7)
== END 2023-06-18 23:59 | disposition home or self-care (01) ==
LOC: ANHLAB 14:49
PROVIDERS: PCP Family Medicine; Visit Provider Physician Assistant
DX: Z51.81 Encounter for therapeutic drug level monitoring (principal); Z79.01 Long term (current) use of anticoagulants
CPT/HCPCS: 36415; 80053; 80186; 81003; 84443; 85025; 85610

== ENCOUNTER 2023-06-04 14:51 | Outpatient (CLI) | payer MEDICARE, SELFPAY ==
[2023-06-04 15:33] LABS: Basophils Percent Auto 0.3 % (0.2-1.2); Eosinophils Absolute Auto 0.2 K/mm3 (0-0.3); Eosinophils Percent Auto 2.8 % (0-4.4); Hematocrit 43.1 % (37.0-47.0); Hemoglobin 13.5 g/dL (12.0-15.0); Immature Granulocyte Absolute 0.03 K/mm3 (0.00-0.031); Immature Granulocyte Percent A 0.5 % (0-0.5); Lymphocytes Absolute Auto 2.51 K/mm3 (0.9-3.2); Lymphocytes Percent Auto 41.6 % (18.3-44.2); Mean Corpuscular HGB Conc 31.3 g/dl (32-36); Mean Corpuscular Hemoglobin 31.7 pg (26-34); Mean Corpuscular Volume 101.2 fl (80-100); Mean Platelet Volume 9.3 fl (7.4-10.4); Monocytes Absolute Auto 0.6 K/mm3 (0.1-0.6); Monocytes Percent Auto 9.4 % (2.6-8.5); Neutrophils Absolute Auto 2.7 K/mm3 (1.3-6.7); Neutrophils Percent Auto 45.4 % (45.5-73.1); Platelet Count Result 201 k/mm3 (150-375); Red Blood Count 4.26 M/mm3 (4.2-5.4); Red Cell Distribution Width 13.8 % (11.5-14.5)
[2023-06-04 15:34] LABS: Appearance Urine Clear (Clear); Bilirubin Urine Negative (Negative); Blood Urine Negative (Negative); Color Urine Yellow (Yellow); Glucose Urine UA Negative (Negative); Ketones Urine Negative (Negative); Leukocyte Esterase Ur Negative LEU/UL (Negative); Nitrate Urine Negative (Negative); Protein Urine Negative (Negative); Specific Grav Ur 1.012 (1.001-1.035); Urobilinogen Urine 0.2 mg/dL (<2.0); pH Urine 6.5 (5.0-9.0)
[2023-06-04 15:39] LABS: Add Urine Microscopic? NO
[2023-06-04 15:42] LABS: Alanine Aminotransferase 22 U/L (6-35); Albumin Level 4.2 g/dL (3.5-5.1); Alkaline Phosphatase 97 U/L (38-126); Anion Gap 4 mmol/L (8-16); Aspartate Amino Transferase 32 U/L (14-36); Bilirubin,Total 0.3 mg/dL (0.2-1.3); Blood Urea Nitrogen 20 mg/dL (7-17); Calcium 8.6 mg/dL (8.4-10.2); Carbon Dioxide 30 mmol/L (22-30); Chloride 101 mmol/L (98-107); Estimated Glomerular Filt Rate 43; Glucose 77 mg/dL (65-110); Sodium 135 mmol/L (137-145)
[2023-06-06 21:14] LABS: Phenytoin Dilantin Free 1.8 mg/L (1.0-2.0)
== END 2023-06-04 14:52 | disposition home or self-care (01) ==
PROVIDERS: PCP Family Medicine; Visit Provider Family Medicine
DX: R42 Dizziness and giddiness (principal); I10 Essential (primary) hypertension; G62.9 Polyneuropathy, unspecified; R56.9 Unspecified convulsions; I48.91 Unspecified atrial fibrillation
CPT/HCPCS: 36415; 80053; 80186; 81003; 84443; 85025

== ENCOUNTER 2023-06-18 11:35 | Outpatient (CLI) | payer MEDICARE, SELFPAY ==
[2023-06-18 12:47] LABS: SARS-CoV-2 RNA PCR Positive (Negative)
== END 2023-06-18 11:36 | disposition home or self-care (01) ==
PROVIDERS: PCP Family Medicine; Visit Provider Physician Assistant
DX: U07.1 COVID-19 (principal)
CPT/HCPCS: 87635

== ENCOUNTER 2023-07-11 15:11 | Outpatient (CLI) | payer MEDICARE, SELFPAY ==
[2023-07-11 16:12] LABS: Basophils Percent Auto 0.3 % (0.2-1.2); Eosinophils Absolute Auto 0.2 K/mm3 (0-0.3); Eosinophils Percent Auto 2.5 % (0-4.4); Hematocrit 40.4 % (37.0-47.0); Hemoglobin 12.8 g/dL (12.0-15.0); Immature Granulocyte Absolute 0.06 K/mm3 (0.00-0.031); Immature Granulocyte Percent A 0.8 % (0-0.5); Lymphocytes Percent Auto 24.9 % (18.3-44.2); Mean Corpuscular HGB Conc 31.7 g/dl (32-36); Mean Corpuscular Hemoglobin 31.5 pg (26-34); Mean Corpuscular Volume 99.5 fl (80-100); Mean Platelet Volume 9.5 fl (7.4-10.4); Monocytes Absolute Auto 0.6 K/mm3 (0.1-0.6); Monocytes Percent Auto 8.4 % (2.6-8.5); Neutrophils Absolute Auto 4.6 K/mm3 (1.3-6.7); Neutrophils Percent Auto 63.1 % (45.5-73.1); Platelet Count Result 240 k/mm3 (150-375); Red Blood Count 4.06 M/mm3 (4.2-5.4); Red Cell Distribution Width 14.6 % (11.5-14.5); White Blood Count 7.2 K/mm3 (4.5-10.0)
[2023-07-11 16:28] LABS: Alanine Aminotransferase 24 U/L (6-35); Albumin Level 4.1 g/dL (3.5-5.1); Alkaline Phosphatase 87 U/L (38-126); Anion Gap 5 mmol/L (8-16); Aspartate Amino Transferase 33 U/L (14-36); Bilirubin,Total 0.5 mg/dL (0.2-1.3); Blood Urea Nitrogen 17 mg/dL (7-17); Calcium 8.8 mg/dL (8.4-10.2); Carbon Dioxide 30 mmol/L (22-30); Chloride 103 mmol/L (98-107); Estimated Glomerular Filt Rate 43; Glucose 80 mg/dL (65-110); Potassium 4.5 mmol/L (3.4-5.0); Sodium 138 mmol/L (137-145)
== END 2023-07-11 15:12 | disposition home or self-care (01) ==
LOC: ANHLAB 15:13
PROVIDERS: PCP Family Medicine; Visit Provider Internal Medicine Cardiovascular Disease
DX: I48.0 Paroxysmal atrial fibrillation (principal)
CPT/HCPCS: 36415; 80053; 84443; 85025

== ENCOUNTER 2023-08-31 15:37 | Outpatient (RCR) | payer MEDICARE, SELFPAY ==
[2023-07-11 16:22] LABS: INR 1.4; Prothrombin Time 18.2 Seconds (11.1-14.7)
[2023-07-31 17:08] LABS: INR 1.6; Prothrombin Time 19.6 Seconds (11.1-14.7)
[2023-08-31 16:53] LABS: INR 1.8; Prothrombin Time 22.1 Seconds (11.1-14.7)
== END 2023-10-09 23:59 | disposition home or self-care (01) ==
LOC: ANHLAB 15:37
PROVIDERS: PCP Family Medicine; Visit Provider Internal Medicine Cardiovascular Disease
DX: I48.0 Paroxysmal atrial fibrillation (principal)
CPT/HCPCS: 36415; 80053; 84443; 85025; 85610

== ENCOUNTER 2023-12-14 16:33 | Outpatient (RCR) | payer MEDICARE, SELFPAY ==
[2023-10-29 17:07] LABS: INR 1.7
[2023-11-21 15:10] LABS: INR 2.5; Prothrombin Time 28.7 Seconds (11.1-14.7)
[2023-12-14 17:55] LABS: INR 3.7; Prothrombin Time 40.3 Seconds (11.1-14.7)
== END 2024-01-27 23:59 | disposition home or self-care (01) ==
LOC: ANHLAB 16:33
PROVIDERS: PCP Family Medicine; Visit Provider Internal Medicine Cardiovascular Disease
DX: I48.0 Paroxysmal atrial fibrillation (principal)
CPT/HCPCS: 36415; 85610; 87637

== ENCOUNTER 2023-12-14 16:34 | Outpatient (CLI) | payer MEDICARE, SELFPAY ==
[2023-12-14 18:22] LABS: Influenza A QL RT-PCR Negative (Negative); Influenza B QL RT-PCR Negative (Negative); RSV RNA, RT-PCR Negative (Negative); SARS-CoV-2 RNA PCR Negative (Negative)
== END 2023-12-14 16:35 | disposition home or self-care (01) ==
LOC: ANHLAB 16:36
PROVIDERS: PCP Family Medicine; Visit Provider Family Medicine
DX: R50.9 Fever, unspecified (principal); R05.9 Cough, unspecified; Z20.822 Contact with and (suspected) exposure to COVID-19
CPT/HCPCS: 87637

== ENCOUNTER 2024-03-14 16:40 | Outpatient (RCR) | payer MEDICARE, SELFPAY ==
[2024-01-29 15:16] LABS: INR 1.7; Prothrombin Time 20.8 Seconds (11.1-14.7)
[2024-03-14 17:45] LABS: INR 3.7; Prothrombin Time 39.8 Seconds (11.1-14.7)
== END 2024-04-28 23:59 | disposition home or self-care (01) ==
LOC: ANHLAB 16:40
PROVIDERS: PCP Family Medicine; Visit Provider Internal Medicine Cardiovascular Disease
DX: I48.0 Paroxysmal atrial fibrillation (principal)
CPT/HCPCS: 36415; 85610

== ENCOUNTER 2024-06-18 14:48 | Outpatient (CLI) | payer MEDICARE, SELFPAY ==
[2024-06-18 15:25] LABS: Hematocrit 42.4 % (37.0-47.0); Hemoglobin 13.7 g/dL (12.0-15.0); Mean Corpuscular HGB Conc 32.3 g/dl (32-36); Mean Corpuscular Hemoglobin 31.7 pg (26-34); Mean Corpuscular Volume 98.1 fl (80-100); Mean Platelet Volume 9.3 fl (7.4-10.4); Platelet Count Result 194 k/mm3 (150-375); Red Blood Count 4.32 M/mm3 (4.2-5.4); Red Cell Distribution Width 14.1 % (11.5-14.5); White Blood Count 4.6 K/mm3 (4.5-10.0)
[2024-06-18 15:41] LABS: Alanine Aminotransferase 14 U/L (6-35); Albumin Level 4.4 g/dL (3.5-5.1); Alkaline Phosphatase 114 U/L (38-126); Anion Gap 10 mmol/L (4-12); Aspartate Amino Transferase 25 U/L (14-36); Bilirubin,Total 0.3 mg/dL (0.2-1.3); Blood Urea Nitrogen 15 mg/dL (7-17); Calcium 9.2 mg/dL (8.4-10.2); Carbon Dioxide 26 mmol/L (22-30); Chloride 103 mmol/L (98-107); Cholesterol 247 mg/dL (0-200); Estimated Glomerular Filt Rate 43; Glucose 85 mg/dL (65-110); HDL Direct 104 mg/dL; Phenytoin Dilantin 15 ug/mL (10-20); Potassium 3.9 mmol/L (3.4-5.0); Sodium 139 mmol/L (137-145); Triglycerides 83 mg/dL (<150)
[2024-06-18 15:50] LABS: LDL Cholesterol Direct 103 mg/dL
[2024-06-18 17:05] LABS: Free T4 Free Thyroxine 1.05 ng/mL (0.78-2.19)
== END 2024-06-18 14:49 | disposition home or self-care (01) ==
LOC: ANHLAB 14:55
PROVIDERS: PCP Family Medicine; Visit Provider Physician Assistant
DX: I48.91 Unspecified atrial fibrillation (principal); E03.9 Hypothyroidism, unspecified; J44.9 Chronic obstructive pulmonary disease, unspecified; N18.30 Chronic kidney disease, stage 3 unspecified; I12.9 Hypertensive chronic kidney disease with stage 1 through stage 4 chronic kidney disease, or unspecified chronic kidney disease; E07.9 Disorder of thyroid, unspecified; R78.89 Finding of other specified substances, not normally found in blood
CPT/HCPCS: 36415; 80053; 80061; 80185; 84439; 84443; 85027; 85610

== ENCOUNTER 2024-06-18 14:58 | Outpatient (RCR) | payer MEDICARE, SELFPAY ==
[2024-05-20 16:53] LABS: INR 1.8; Prothrombin Time 21.8 Seconds (11.1-14.7)
[2024-06-18 15:36] LABS: INR 2.7; Prothrombin Time 29.6 Seconds (11.1-14.7)
== END 2024-08-18 23:59 | disposition home or self-care (01) ==
LOC: ANHLAB 14:58
PROVIDERS: PCP Family Medicine; Visit Provider Internal Medicine Cardiovascular Disease
DX: I48.0 Paroxysmal atrial fibrillation (principal)
CPT/HCPCS: 36415; 85610

== ENCOUNTER 2024-11-12 15:52 | Outpatient (RCR) | payer MEDICARE, SELFPAY ==
[2024-11-12 16:23] LABS: INR 2.4; Prothrombin Time 26.7 Seconds (11.1-14.7)
== END 2025-02-10 23:59 | disposition home or self-care (01) ==
LOC: ANHLAB 15:52
PROVIDERS: PCP Family Medicine; Visit Provider Internal Medicine Cardiovascular Disease
DX: I48.0 Paroxysmal atrial fibrillation (principal)
CPT/HCPCS: 36415; 85610

== ENCOUNTER 2025-03-03 16:19 | Outpatient (CLI) | payer MEDICARE, SELFPAY ==
--- OUTSIDE RECORDS SUMMARY | 2025-03-03 16:22 | XMS_ITS | Referral Summary ---
Author Organization [place] [address] [address] [place] [phone] Care Team Providers Care Insulation Manager Name Role Phone Rosa Maria Love MD Primary Care Provider Encounters Date Type Department Care Team Description 03/02/2025 Telephone [facility] Medical [facility] Cardiology [address] [place] [address] [address] [place] [address] Levon Ambriz MD Med Refill 01/13/2025 10:00 AM CDT Ancillary Procedure [facility] Medical [facility] Cardiology [address] [facility] [address] [place] [phone] Cardiac pacemaker (Primary Dx); SSS (sick sinus syndrome) (HCC); Paroxysmal atrial fibrillation (HCC) 12/08/2024 Telephone [facility] Cardiology [address] [place] [address] [address] [place] [address] Levon Ambriz MD from Last 3 Months Allergies Active Allergy Reactions Criticality Noted Date Comments Propoxyphene Headache Low 12/24/2014 Medications fluticasone propion-salmet Bravo (ADVAIR DISKUS) 250-50 mcg/dose diskus inhaler Inhale 1 puff every 12 (twelve) hours 02/04/20 21 Active albuterol HFA (PROVENTIL HFA,VENTOLIN HFA,PROAIR HFA) 90 mcg/actuation inhaler Inhale 2 puffs every 4 (four) hours as needed 06/23/20 21 Active phenytoin ER (DILANTIN) 100 mg ER capsule Take 2 capsules (200 mg total) by mouth daily 04/11/20 21 Active cyanocobalamin (Vitamin B-12) 1,[address] 1 tablet (1,000 mcg total) under the tongue daily 08/31/20 21 Active levothyroxine (SYNTHROID) 50 mcg tablet Take 1 tablet (50 mcg total) by mouth daily 06/07/20 23 Active UNABLE TO FIND OXYGEN 2 LT Med Name: Active dilTIAZem XR 120 mg 24 hr capsule TAKE 1 CAPSULE BY MOUTH EVERY DAY 90 capsule 3 05/26/20 24 Active calcium carbonate (OS-ROBB) 1,500 mg (600 mg elemental) tablet Take 1 tablet (1,500 mg total) by mouth Active magnesium oxide 500 mg capsule Take by mouth Active ggzzt-2s-dtw-e pa-fish oil 300-1,000 mg capsule Take by mouth Active TURMERIC ORAL Take by mouth Ac tive pantoprazole DR (PROTONIX) 20 mg EC tablet Take 1 tablet (20 mg total) by mouth daily before breakfast 90 tablet 6 05/28/20 24 Active losartan (COZAAR) 25 mg tablet TAKE 1 TABLET (25 MG TOTAL) BY MOUTH DAILY. 90 tablet 1 11/26/19 25 026 Active warfarin (COUMADIN) 2.5 mg tablet Take 1 tablet (2.5 mg total) by mouth as directed PT NEED INR DRAWN FOR MOR REFILLS LAST DRAW WAS IN OCTOBER 31 tablet 03/02/20 25 Active warfarin (COUMADIN) 2.5 mg tablet Take 1 (2.5 mg) tablet on Sunday and Sunday and 1.5 tablets (3.75 mg) all other days. 114 tablet 12/08/19 25 025 Discontinued Active Problems Problem Noted Date Diagnosed Date Paroxysmal atrial fibrillation 05/16/2022 Cardiac pacemaker 01/19/2022 Overview (02/14/2022): Roach Assurity Dual Pacemaker. Dx; SSS, PAF. DOI 05/10/2021-Dr [place]. [place] remote monitoring. 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 Gender Identity Not on file Sexual Orientation Not on file Last Filed Vital Signs Vital Sign Reading Time Taken Comments Blood Pressure 132/70 05/28/2024 2:13 PM CDT Pulse 60 05/28/2024 2:13 PM CDT Temperature - - Respiratory Rate - - Oxygen Saturation 96% 05/28/2024 2:13 PM CDT Inhaled Oxygen Concentration - - Weight 55.3 kg (122 lb) 11/21/2023 1:27 PM DOBBY LOOM CHAIN PEGGER Height 165.1 cm (5' 5 ) 05/28/2024 2:13 PM CDT Body Mass Index 20.3 11/21/2023 1:27 PM DOBBY LOOM CHAIN PEGGER Plan of Treatment Not on file Procedures Procedure Name Priority Date/Time Associated Diagnosis Comments DEVICE CHECK - REMOTE Routine 01/13/2025 7:57 AM CDT SSS (sick sinus syndrome) (HCC) Paroxysmal atrial fibrillation (HCC) from Last 3 Months Results * DEVICE CHECK - REMOTE (01/13/2025 7:57 AM CDT) Anatomical Region Laterality Modality Other Narrative 01/19/2025 7:35 PM CDT Namshi Assurity Dual Pacemaker. Dx; SSS, PAF. DOI 05/10/2021-Dr [place]. [place] remote monitoring. Routine DDDR Pacemaker Remote. Transmission attached. Battery status: 3.01 V, 5.2-6.4 years remaining battery life to ELIJAH. Stable lead impedances, pacing and sensing thresholds. Presenting rhythm: AP/VS AP-70%, STAFF DEVELOPMENT NURSE-< 1% No AT/AF episodes noted. No Ventricular high rate episodes detected. Medications: Warfarin, diltiazem XR 120 mg, losartan 25 mg See scanned report. Office pacemaker follow up: 10/07/25 Atilio remote f/u 04/14/25. Joe Arias RN Joseph Oviedo MD [facility] PROC EDURES Final Result from Last 3 Months Insurance MEDICARE MEDICARE Care Teams Insulation Manager Relationship Specialty Start Date End Date Rosa Maria Love MD [address] [facility] [address] [place] [address] PCP - General Family Medicine 01/19/22
--- OUTSIDE RECORDS SUMMARY | 2025-03-03 16:22 | XMS_ITS | Clinical Summary ---
Author Organization [facility] [address] [facility] [address] Address [address] [place] [address] Care Team Providers Care Oil Truck Driver Name Role Phone Rosa Maria Love MD Primary Care Provider Allergies Active Allergy Reactions Criticality Noted Date [...] 500 mg capsule Take by mouth Active [id number]-[id number] pa-fish oil 300-1,000 mg capsule Take by [...] Pacemaker. Dx; SSS, PAF. DOI 05/10/2021-Dr [place]. Atilio remote monitoring. Encounters Date Type Department Care Team Description 03/02/2025 Telephone [facility] Medical [facility] Cardiology [address] [facility] [address] [place] [phone] Levon Ambriz MD Med Refill 01/13/2025 10:00 AM CDT Ancillary Procedure [facility] Medical [facility] Cardiology [facility] [address] [place] [phone] Cardiac pacemaker (Primary Dx); SSS (sick sinus syndrome) (HCC); Paroxysmal atrial fibrillation (HCC) 12/08/2024 Telephone [facility] Medical [facility] Cardiology [address] [facility] [address] [place] [phone] Levon Ambriz MD from Last 3 Months Surgical History Surgery Date Site/Laterality Comments CARDIAC PACEMAKER PLACEMENT 04/21/2021 - 05/21/2021 Medical History Medical History Date Comments Hypertension GERD (gastroesophageal reflux disease) Asthma COPD (chronic obstructive pulmonary disease) (HC C) Family History Medical History Relation Name Comments Cancer Father Stroke Mother Relation Name Status Comments Father Mother Social History Tobacco Use Types Packs/Day Years Used Date Smoking Tobacco: Never Tobacco Cessation:Counseling Given: Not Answered Comments Unknown Sex and Gender Information Value Date Recorded Sex Assigned at Not on file Legal Sex Female 7:55 PM REFINERY TECHNICIAN Gender Identity Not on file Sexual Orientation Not on file Obstetrics History Last Filed Vital Signs Vital Sign Reading Time Taken Comments Blood Pressure 132/70 05/28/2024 2:13 PM CDT Pulse 60 05/28/2024 2:13 PM CDT Temperature - - Respiratory Rate - - Oxygen Saturation 96% 05/28/2024 2:13 PM CDT Inhaled Oxygen Concentration - - Weight 55.3 kg (122 lb) 11/21/2023 1:27 PM REFINERY TECHNICIAN Height 165.1 cm (5' 5 ) 05/28/2024 2:13 PM CDT Body Mass Index 20.3 11/21/2023 1:27 PM REFINERY TECHNICIAN Plan of Treatment Health Maintenance Due Date Last Done Comments Depression Screening 1941 Fall Risk Assessment 1941 DTaP/Tdap/Td Vaccine (1 - Tdap) 1952 Hepatitis B Screening 1959 Zoster Vaccine (1 of 2) 1991 Well Visit 65+ 2006 Osteoporosis Screening-Bone Density Scan 09/04/2019 09/04/2017 Covid-19 Vaccine ( - 2023-2 5 season) 2024 06/23/2021, 12/14/2020, 11/11/2020 Influenza Vaccine (Season Ended) 2025 07/26/2021, 08/04/2020, 08/14/2018, Additional history exists Pneumococcal vaccine 65+ Completed 07/26/2021, 05/22 Procedures Procedure Name Priority Date/Time Associated Diagnosis Comments DEVICE CHECK - REMOTE Routine 01/13/2025 7:57 AM CDT SSS (sick sinus syndrome) (HCC) Paroxysmal atrial fibrillation (HCC) from Last 3 Months Results * DEVICE CHECK - REMOTE (01/13/2025 7:57 AM CDT) Anatomical Region Laterality Modality Other Narrative 01/19/2025 7:35 PM CDT Roach Assurity Dual Pacemaker. Dx; SSS, PAF. DOI 05/10/2021-Dr [place], [place]. Atilio remote monitoring. Routine DDDR Pacemaker Remote. Transmission attached. Battery status: 3.01 V, 5.2-6.4 years remaining battery life to ELIJAH. Stable lead impedances, pacing and sensing thresholds. Presenting rhythm: AP/VS AP-70%, HAIRCUTTER-< 1% No AT/AF episodes noted. No Ventricular high rate episodes detected. Medications: Warfarin, diltiazem XR 120 mg, losartan 25 mg See scanned report. Office pacemaker follow up: 10/07/25 Atilio remote f/u 04/14/25. Joe Arias, LESIA Joseph Oviedo MD [facility] C[facility] PROC EDURES Final Result from Last 3 Months Insurance MEDICARE MEDICARE Care Teams Oil Truck Driver Relationship Specialty Start Date End Date Rosa Maria Love MD [address] [facility] [address] [place] [phone] PCP - General Family Medicine 01/19/22
--- OUTSIDE RECORDS SUMMARY | 2025-03-03 16:22 | XMS_ITS | Encounter Summary ---
Author Organization [facility] Healthcare Address [address] [place] [address] Care Team Providers Care Manager Route Name Role Phone Rosa Maria Love MD Primary Care Provider Reason for Visit * Reason Comments Med Refill Encounter Details Date Type Department Care Team (Late st Contact Info) Description 03/02/2025 Telephone [facility] Medical Group Cardiology [address] [place] [phone] Levon Ambriz MD [address] [address] Med Refill Social History Tobacco Use Types Packs/Day Years Used Date Smoking Tobacco: Never Comments Unknown Sex and Gender Information Value Date Recorded Sex Assigned at Not on file Legal Sex Female 7:55 PM DIRECTOR PROSPECT Gender Identity Not on file Sexual Orientation Not on file documented as of this encounter Ordered Prescriptions Prescription Sig Dispense Quantity Refills Last Filled Start Date End Date warfarin (COUMADIN) 2.5 mg tablet Take 1 tablet (2.5 mg total) by mouth as directed PT NEED INR DRAWN FOR MOR REFILLS LAST DRAW WAS IN OCTOBER 31 tablet 03/02/2025 documented in this encounter Miscellaneous Notes * Telephone Encounter - Alex Gayle MA - 03/02/2025 10:29 AM CDT Sent in 1 weeks worth of warfarin and called pt to let her know we need her INR drawn before she can get more. Pt states she will go get it drawn tomorrow and we will send in a new script once we getresults. * Telephone Encounter - Julee Rosales - 03/02/2025 9:57 AM CDT Pt called stating that she is completely out of her warfarin and she needs it filled ashok. Thank you Contact: documented in this encounter Plan of Treatment Not on file documented as of this encounter Visit Diagnoses Not on filedocumented in this encounter Discontinued Medications Medication Sig Discontinue Reason Start Date End Da te warfarin (COUMADIN) 2.5 mg tablet Take 1 (2.5 mg) tablet on Sunday and Sunday and 1.5 tablets (3.75 mg) all other days. 12/08/2024 03/02/2025 documented as of this encounter Care Teams Manager Route Relationship Specialty Start Date End Date Rosa Maria Love MD [address] [facility] [address] [place] [address] PCP - General Family Medicine 01/19/22 documented as of this encounter
[2025-03-03 17:15] LABS: INR 2.5; Prothrombin Time 26.9 Seconds (11.1-14.7)
== END 2025-03-03 16:20 | disposition home or self-care (01) ==
PROVIDERS: PCP Family Medicine; Visit Provider Internal Medicine Cardiovascular Disease
DX: I48.0 Paroxysmal atrial fibrillation (principal)
CPT/HCPCS: 36415; 85610

== ENCOUNTER 2025-05-26 11:20 | Outpatient (RCR) | payer MEDICARE, SELFPAY ==
[2025-04-03 18:16] LABS: INR 2.5; Prothrombin Time 26.1 Seconds (11.1-14.7)
[2025-05-26 12:30] LABS: INR 2.3; Prothrombin Time 24.3 Seconds (11.1-14.7)
== END 2025-07-02 23:59 | disposition home or self-care (01) ==
LOC: ANHLAB 11:20
PROVIDERS: PCP Family Medicine; Visit Provider Internal Medicine Cardiovascular Disease
DX: I48.0 Paroxysmal atrial fibrillation (principal)
CPT/HCPCS: 36415; 85610